=== PATIENT | female | born 1935 | race Caucasian/White ===

== ENCOUNTER 2016-11-10 10:49 | Inpatient (IN) | payer MEDICARE, OTHER ==
--- NOTE | 2016-11-10 12:20 | RAD ---
HISTORY: Pain, swelling, redness of left lower extremity COMPARISONS: None relevant TECHNIQUE: Multiple transverse and longitudinal ultrasound images were obtained of the left lower extremity from the level of the common femoral vein inferiorly through to the infrapopliteal veins using grayscale, color Doppler, and spectral Doppler imaging with and without compression and with augmentation. Comparison images were obtained of the contralateral common femoral vein. FINDINGS: VEINS: The venous system of the left lower extremity is compressible throughout its course, with normal flow on color Doppler imaging and normal response to augmentation on spectral Doppler imaging. SOFT TISSUES: There is subcutaneous edema along the calf. OTHER FINDINGS: There is a popliteal fossa cyst measuring 1.7 x 1.2 x 1.3 cm IMPRESSION: 1. NO LEFT LOWER EXTREMITY DEEP VEIN THROMBOSIS 2. BARBOSA'S CYST
--- NOTE | 2016-11-10 14:31 | RAD ---
Indication: Predominant posterior RIGHT knee pain. Swelling. Comparison: RIGHT lower extremity venous ultrasound of the same date markable for a 1.7 x 1.2 x 1.3 cm lateral cyst at the popliteal fossa. November 09, 2016 radiographs. Technique: Noncontrast CT RIGHT knee. Multiplanar reformation. Report: Normal articular alignment. Moderate lipohemarthrosis with air-fluid level reference axial image 28 of 80. Subtle impaction fracture with cortical disruption and trabecular impaction involving the distal metaphysis through medial femoral condyle. No appreciable articular surface extension of the fracture planes. Predisposing decreased bone density. Osteophytosis. Complete lateral joint space loss with associated reactive subchondral sclerosis. Subchondral cystic change at the undersurface of the patella. Subcutaneous edema. No loculated hematoma evident. Diffuse skeletal muscle atrophy. IMPRESSION: Intra-articular distal femur insufficiency fracture without significant displacement. Associated lipohemarthrosis. Osteoarthritis.
--- NOTE | 2016-11-10 14:49 | ED ---
Lower Extremity - HPI Summary HPI Summary: Patient presents with left knee pain. She suffered a fall two weeks ago onto both knees. She had mild discomfort but has been able to walk up until 2-3 days ago when weight bearing became impossible. She also began to notice swelling in the LLE with some increased redness. She has a history of blood clot so she came in for evaluation. She denies SOB, CP or lightheadedness. She does not have any pain when she is non-weight bearing but if she moves the knee certain ways it can be excruciating. No N/T. - History of Current Complaint Chief Complaint: EDExtremityLower Stated Complaint: LT KNEE PAIN Time Seen by Provider: 11/10/16 11:21 Hx Obtained From: Patient Mechanism Of Injury: Fall From A Standing Position Onset of Pain: Days Onset/Duration: Worse Since - two days ago Severity Initially: Mild Severity Currently: Severe Pain Intensity: 9 Timing: Constant Location: Is Discrete @ - left knee Character Of Pain: Sharp, Aching Associated Signs And Symptoms: Positive: Swelling, Redness, Knee Pain Aggravating Factor(s): Standing, Ambulation, Weight Bearing Alleviating Factor(s): Rest Able to Bear Weight: No - Allergies/Home Medications Allergies/Adverse Reactions: Allergies Allergy/AdvReac Type Severity Reaction Status Date / Time No Known Allergies Allergy Verified 09/05/12 09:46 Home Medications: Home Medications Metoprolol Succinate XL TAB* [Toprol XL TAB*] 50 mg PO DAILY 11/10/16 [History Confirmed 11/11/16] Rivaroxaban TAB(*) [Xarelto 10 mg (*)] 10 mg PO DAILY 11/10/16 [History Confirmed 11/10/16] Metoprolol Succinate XL TAB* [Toprol XL TAB*] 25 mg PO 1800 11/11/16 [History Confirmed 11/11/16] PMH/Surg Hx/FS Hx/Imm Hx Endocrine/Hematology History: Denies: Hx Anticoagulant Therapy Cardiovascular History: Reports: Other Cardiovascular Problems/Disorders - A FIB Respiratory History: Denies: Hx Asthma GI History: Reports: Hx Gastroesophageal Reflux Disease Infectious Disease History: No Infectious Disease History: Denies: Traveled Outside the [place] in Last 30 Days - Family History Known Family History: Positive: None - Social History Occupation: Retired Lives: Alone Alcohol Use: None Substance Use Type: Reports: None Smoking Status (MU): Never Smoked Tobacco Review of Systems Positive: Myalgia, Decreased ROM, Edema - left knee Negative: Weakness, Paresthesia, Numbness All Other Systems Reviewed And Are Negative: Yes Physical Exam Triage Information Reviewed: Yes Vital Signs On Initial Exam: Initial Vitals Temp Pulse Resp BP Pulse Ox 98.7 F 66 18 132/68 97 11/10/16 11:00 11/10/16 11:00 11/10/16 11:00 11/10/16 11:00 11/10/16 11:00 Vital Signs Reviewed: Yes Appearance: Positive: Well-Appearing, Well-Nourished, Pain Distress Skin: Positive: Warm, Skin Color Reflects Adequate Perfusion, Dry, Soft Head/Face: Positive: Normal Head/Face Inspection Eyes: Positive: EOMI, MAGGIE, Conjunctiva Clear ENT: Positive: Hearing grossly normal Respiratory/Lung Sounds: Positive: Clear to Auscultation, Breath Sounds Present Cardiovascular: Positive: RRR Musculoskeletal: Positive: Limited @, Pain @ - TTP lateral joint line; + patellar apprehension; non-tender popliteal kenny, Edema Left - moderate edema from the left knee distally through the foot - Janna Coma Scale Coma Scale Total: 15 Diagnostics - Vital Signs Vital Signs Temp Pulse Resp BP Pulse Ox 11/10/16 13:00 69 126/66 92 11/10/16 12:30 70 132/62 89 11/10/16 12:00 67 131/67 100 11/10/16 11:30 67 142/74 98 11/10/16 11:13 61 95 11/10/16 11:10 132/68 11/10/16 11:00 98.7 F 66 18 132/68 97 - Laboratory Lab Statement: Any lab studies that have been ordered have been reviewed, and results considered in the medical decision making process. - Radiology No standard instances Xray Interpretation: No Acute Changes Radiology Interpretation Completed By: Radiologist - CT No standard instances CT Interpretation: Positive (See Comments) - Left distal femur insufficiency fracture with minimal displacement CT Interpretation Completed By: Radiologist - Ultrasound No standard instances Ultrasound Interpretation: No Acute Changes Ultrasound Interpretation Completed By: Radiologist Lower Extremity Course/Dx - Diagnoses Differential Diagnosis/HQI/PQRI: Positive: Arthritis, Bursitis, Cellulitis, Compartment Syndrome, Contusion, Fracture (Closed), Osteomyelitis, Sprain, Strain Provider Diagnoses: Closed fracture of left distal femur - Physician Notifications Discussed Care of Patient With: Dr. Loja, orthopedic surgeon to consult; Dr. Bartholomew, hospitalist. Instructed by Provider To: Admit As Inpatient Discharge - Discharge Plan Condition: Stable Disposition: ADMITTED TO [facility]
[2016-11-10] MEDS: Acetaminophen TAB* 325 MG PO SCH ×3 (17:36→23:47)
[2016-11-10] MEDS ORDERED: Metoprolol Succinate XL TAB* 25 MG PO SCH (18:00)
[2016-11-10] MEDS: Rivaroxaban TAB(*) 10 MG PO SCH (18:13)
--- NOTE | 2016-11-10 21:40 | HP ---
HISTORY AND PHYSICAL: DATE OF ADMISSION: 11/10/16 PRIMARY CARE PROVIDER: Dr. Muñoz. CHIEF COMPLAINT: Left knee pain. HISTORY OF PRESENT ILLNESS: Ms. Burrell is an 81-year-old female who presented to the emergency room on 11/10/16 with complaints of left knee pain. The patient's story begins approximately 2-1/2 weeks ago when she was bending down to turn off a surge protector that her TV was plugged in to and fell forward landing on both of her knees. The patient states that initially she was able to ambulate with some difficulty and pain in her left knee, but was only requiring a cane to get around. The patient ambulated for approximately 10 days with increase in pain during that period of time. Additionally, she went from the point of needing just a cane to needing a walker to get around. At this point, the patient finds it would be extremely difficult to get around at all and therefore presented to the emergency room. The patient initially had x- rays on 11/09/16, which revealed no acute osseous injury, though the degree of osteopenia may make a nondisplaced fracture radiographically occult. If symptoms persist, it was recommended to repeat imaging. Because of persistent severe pain in the left knee, the patient presented to the emergency room today for evaluation. In the ER, the patient underwent a venous Doppler of the left lower extremity due to swelling, which revealed no evidence of DVT, though a Rosales cyst was present. Additionally, she underwent a CT scan of the left lower extremity, which revealed an intraarticular distal femur insufficiency fracture without significant displacement. There is an associated lipohemarthrosis and osteoarthritis noted. The patient is being admitted for pain control and likely placement for short-term rehab due to her inability to get around at home alone. PAST MEDICAL HISTORY: 1. Paroxysmal atrial fibrillation. 2. 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 3. Status post IVC filter. 4. Chronic balance issues. 5. GERD. MEDICATIONS: 1. Omeprazole 20 mg p.o. daily. 2. Metoprolol XL 75 mg p.o. daily. 3. Xarelto 10 mg p.o. daily. ALLERGIES: MULTAQ. FAMILY HISTORY: Mom had history of coronary disease in her 70s. Dad of leukemia in his 80s. SOCIAL HISTORY: The patient is a nonsmoker. She does not drink alcohol. 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 She lives alone. She has 3 children. Her son, Ezra Álvarez, phone number is [phone] and daughter, Sadaf Álvarez, phone number [phone] are her healthcare proxies. REVIEW OF SYSTEMS: The patient denies any fevers, chills, or anorexia. No chest pain, no cough, no shortness of breath. No abdominal pain. She moves her bowels routinely. No blood in the stool. No blood in her urine. She complains of severe pain in the left lower extremity, especially behind the left knee. She is having a hard time getting around. No rashes. PHYSICAL EXAMINATION GENERAL: The patient is a well-developed elderly female, sitting in the stretcher, in no acute distress. VITAL SIGNS: Blood pressure 126/66, pulse 69, respirations 18, temp 98.7, O2 sat 92% on room air. HEENT: Pupils are equal. They are round. They react to light. Extraocular muscles are intact. Oropharynx is clear. Oral mucosa is moist. There is no submandibular, cervical, or supraclavicular adenopathy. Thyroid is not enlarged. No thyroid nodules are noted. PULMONARY: Lungs are clear to auscultation bilaterally. CARDIAC: Normal S1, S2. Regular rate and rhythm. I do not appreciate any murmurs. There is 1+ left lower extremity edema. ABDOMEN: Bowel sounds are present. Abdomen is soft, nontender, nondistended. MUSCULOSKELETAL: There is no cyanosis or clubbing of the digits. There is full active range of motion of the bilateral upper extremities and right lower extremity. Left lower extremity range of motion is limited due to severe pain and in fact the patient screamed with minimal movement of her left lower extremity. SKIN: Warm and dry. There are no rashes. NEUROLOGIC: Cranial nerves II through XII are grossly intact. Sensation is intact to light touch throughout. Strength is 5/5 and symmetric in the upper extremities and right lower extremity. Left lower extremity strength is not tested due to severe pain. PSYCH: The patient is alert. She is oriented x3. The patient is an incredibly fast talker and leaves little time for questioning between her providing answers. DIAGNOSTIC STUDIES/LAB DATA: Left lower extremity CT, intraarticular distal femur fracture without significant displacement. ASSESSMENT AND PLAN: Ms. Burrell is an 81-year-old female who fell approximately 2-1/2 weeks ago due to a mechanical issue, presents to the emergency room with severe left knee pain with any movement and is found to have an intraarticular distal femur fracture that is nonsurgical in nature. 1. Left distal femur fracture. At this point, the management is conservative. The patient has been seen in consultation by Orthopedics. It has been recommended that the patient has Kerlix wrapped around her knees followed by an Nando wrap and a knee immobilizer. The patient is to be nonweightbearing on the left lower extremity. I suspect the patient is going to need short-term rehab as she lives alone and is unlikely to be able to manage on her own. A PT evaluation has been ordered. Pain control will be managed with Tylenol 975 mg p.o. q.6 hours as well as oxycodone 5 mg p.o. q.6 hours p.r.n. pain. 2. Paroxysmal atrial fibrillation. The patient is currently in sinus rhythm. She will be maintained on her usual dose of Xarelto and metoprolol. 3. Gastroesophageal reflux disease. The patient will be continued on her usual dose of omeprazole. 4. DVT prophylaxis. According to the Adult Thrombosis Prophylaxis Risk Factor Assessment Guide, the patient has a total risk factor score of 8 making her the highest risk. She is already on Xarelto and this will act as her DVT prophylaxis. 5. Code status is full and again the patient indicates that her children, Ezra Álvarez and Sadaf Álvarez, are her healthcare proxies. TIME SPENT: 65 minutes were spent admitting this patient. [id number]/[facility] #: [id number] [facility]
--- NOTE | 2016-11-10 21:40 | CONS ---
ORTHOPEDIC CONSULTATION NOTE: DATE OF CONSULT: 11/10/16 DATE OF DICTATION: 11/10/16 ATTENDING PHYSICIAN: Dr. Bartholomew. ATTENDING ORTHOPEDIC PHYSICIAN: Dr. Khalif Loja. (DICTATED BY TANI SORENSEN) CHIEF COMPLAINT: Left knee pain, inability to ambulate. HISTORY OF PRESENT ILLNESS: The patient is an 81-year-old female who states that she fell roughly [id number]-half weeks ago in her home landing on her knees. At that time, she did not have significant discomfort and was able to bear weight. Over the last 2 weeks, her left knee pain became increasingly more painful and she was having difficulty ambulating. She was evaluated with x- rays on the 09 of November, which failed to show any obvious acute fracture. Her bone quality is osteopenic. She presented to the emergency department this afternoon after being unable to ambulate with increased left knee pain. Venous Doppler was performed, which did not show evidence of a deep venous thrombosis. She underwent a CAT scan which did reveal a cortical defect/ nondisplaced fracture of the distal femoral metaphysis. Arthritic changes are also noted on both the plain films and the recent CAT scan. The patient denies other bodily injury upon her fall two-and-a- half weeks ago. PAST MEDICAL HISTORY: Significant for atrial fibrillation, history of uterine benign tumor, she had sutures on her upper lip several years ago. PAST SURGICAL HISTORY: Including removal of uterine tumor 20 plus years ago. She denies other surgical procedures. CURRENT MEDICATIONS: Include: 1. Xarelto 10 mg daily. 2. Metoprolol 75 mg p.o. daily. 3. Occasionally loratadine for seasonal allergies. ALLERGIES: The patient denies any known drug allergies. SOCIAL HISTORY: The patient denies use of tobacco or alcohol. She has two daughters, one lives on the [facility], one adopted and a son who is track repair worker , who I believe is local. PHYSICAL EXAM: The patient is alert and oriented x3. She is in no acute distress, sitting up in the emergency department with her knees most comfortably positioned in flexion. Orthopedic examination of the left knee failed to show any obvious ecchymosis, erythema, or significant edema. There is minimal tenderness to palpation over the distal femoral shaft anteriorly, medially, and laterally. She has discomfort to palpation in the popliteal fossa. Attempts at passive extension and flexion were extremely painful in the popliteal region of the knee. Her calf is soft and nontender. Homans' sign is negative. She has a 1+ pedal pulse. Her foot is pink and warm. DIAGNOSTIC STUDIES: Plain films of the left knee show arthritic changes especially in the lateral and anterior compartments without obvious fracture now that the CT has shown a cortical defect of the lateral metaphysis. It is noticeable her bone quality is osteopenic. The CT performed today does show the evidence of a cortical defect of a distal metaphyseal region. IMPRESSION: Nondisplaced fracture of the left distal femur. PLAN: The patient is admitted to the medical service. She lives alone and will be unable to care for herself with a nonweightbearing status on the left lower extremity. I recommend a well-padded knee immobilizer to be placed to the left lower extremity. Recommend nonweightbearing. At this time, no surgical intervention will be necessary. The patient is in understanding and knows that she will likely need to be placed in rehabilitation prior to being able to be independent at home alone. TANI SORENSEN [id number]/[facility] #: [id number] YVONNE
[2016-11-11] MEDS: Acetaminophen TAB* 325 MG PO SCH ×4 (05:39→23:38)
[2016-11-11] MEDS: Omeprazole CAP* 20 MG PO SCH (08:38)
[2016-11-11] MEDS: oxyCODONE TAB* 5 MG TAB PO PRN ×2 (08:38→15:53)
[2016-11-11] MEDS: Metoprolol Succinate XL TAB* 50 MG PO SCH (08:38)
--- NOTE | 2016-11-11 14:51 | PN ---
Subjective Date of Service: 11/11/16 Interval History: Patient seen and examined at bedside. Pt states that she is feeling well today and her pain is controlled. She has not been out of bed yet. Denies fever, chills, shortness of breath, chest discomfort, N/V/D. Family History: Unchanged from Admission Social History: Unchanged from Admission Past Medical History: Unchanged from Admission Objective Active Medications: Acetaminophen (Tylenol Tab*) 975 mg PO Q6H [facility] Metoprolol Succinate (Toprol Xl Tab*) 50 mg PO DAILY [facility] Metoprolol Succinate (Toprol Xl Tab*) 25 mg PO 1800 [facility] Omeprazole (Prilosec Cap*) 20 mg PO DAILY [facility] Oxycodone HCl (Roxycodone Tab*) 5 mg PO Q6H PRN Reason: PAIN Rivaroxaban (Xarelto(*)) 10 mg PO 1800 [facility] Vital Signs 11/10/16 11/10/16 11/10/16 17:02 17:12 17:37 Temperature 97.5 F 97.5 F Pulse Rate 72 72 Respiratory 18 18 18 Rate Blood Pressure 134/57 134/57 (mmHg) O2 Sat by Pulse 96 96 Oximetry 11/10/16 11/10/16 11/10/16 19:30 19:42 23:45 Temperature 97.8 F 97.5 F Pulse Rate 70 67 Respiratory 16 16 18 Rate Blood Pressure 107/58 109/52 (mmHg) O2 Sat by Pulse 98 97 Oximetry 11/11/16 11/11/16 11/11/16 03:27 07:22 08:00 Temperature 97.5 F 98.0 F Pulse Rate 76 71 Respiratory 18 18 16 Rate Blood Pressure 142/52 125/55 (mmHg) O2 Sat by Pulse 97 95 Oximetry 11/11/16 11/11/16 08:38 12:44 Temperature 97.5 F Pulse Rate 67 Respiratory 16 16 Rate Blood Pressure 105/60 (mmHg) O2 Sat by Pulse 96 Oximetry Oxygen Devices in Use Now: None Appearance: NAD, sitting up in bed Eyes: No Scleral Icterus, PERRLA Ears/Nose/Mouth/Throat: NL Teeth, Lips, Gums, Mucous Membranes Moist Neck: NL Appearance and Movements; NL JVP, Trachea Midline Respiratory: Symmetrical Chest Expansion and Respiratory Effort, Clear to Auscultation Cardiovascular: NL Sounds; No Murmurs; No JVD, RRR Abdominal: NL Sounds; No Tenderness; No Distention Extremities: - - Mild edema left LE Skin: - - Knee immobilizer inplace Neurological: Alert and Oriented x 3, NL Muscle Strength and Tone Lines/Tubes/Other Access: Clean, Dry and Intact Peripheral IV - site benign Nutrition: Taking PO's Assess/Plan/Problems-Billing Assessment: Ms. Burrell is an 81 yo female with PMH significant for paroxysmal afib, hx DVT who fell approximately 2 weeks ago and presented to the emergency room with severe left knee pain and was found to have an intraarticular distal femur fx that is nonsurgical in nature. - Patient Problems (1) Closed fracture of left distal femur Code(s): S72.402A - UNSP FRACTURE OF LOWER END OF LEFT FEMUR, INIT FOR CLOS FX SNOMED Code(s): 305626664 Comment: - Ortho consulted, nonsurgical fracture - PT eval and treat - Maintain left leg in a knee immobilizer and non-weight bearing for 4 weeks - Pain control and bowel regime (2) Paroxysmal atrial fibrillation Code(s): I48.0 - PAROXYSMAL ATRIAL FIBRILLATION SNOMED Code(s): 935029451 Comment: - Heart rate regular on exam - Continue Xarelto and Metoprolol (3) GERD (gastroesophageal reflux disease) Code(s): K21.9 - GASTRO-ESOPHAGEAL REFLUX DISEASE WITHOUT ESOPHAGITIS SNOMED Code(s): 602187294 Comment: - Continue omeprazole (4) DVT prophylaxis Code(s): BDS8811 - SNOMED Code(s): 186859784 Comment: - Continue Xarelto (5) Full code status Code(s): Z78.9 - OTHER SPECIFIED HEALTH STATUS SNOMED Code(s): 442986882 Status and Disposition: Inpatient. Plan for discharge to [facility] on Wednesday 11/15 for rehab.
[2016-11-11] MEDS: Metoprolol Succinate XL TAB* 25 MG PO SCH (17:44)
[2016-11-11] MEDS: Rivaroxaban TAB(*) 10 MG PO SCH (17:44)
[2016-11-11] MEDS ORDERED: Polyethylene Glycol 3350* 17 GM PACKET PO PRN (18:27)
[2016-11-11] MEDS ORDERED: Magnesium Hydroxide LIQ* 30 ML UDC PO PRN (18:27)
[2016-11-12] MEDS: Acetaminophen TAB* 325 MG PO SCH ×5 (04:42→23:22)
[2016-11-12] MEDS: Omeprazole CAP* 20 MG PO SCH (07:55)
[2016-11-12] MEDS: Metoprolol Succinate XL TAB* 50 MG PO SCH (07:55)
--- NOTE | 2016-11-12 11:09 | PN ---
Progress Note - Progress Note SOAP: Subjective: [Ms. Burrell is an 81 yo female who fell approximately 2 weeks ago and was found to have an intraarticular distal femur fx that is nonsurgical in nature. Patient working with PT well, no complaints, pain well controlled. ] Objective: [GEneral- Well appearing, NAD MSK- MIld LE edema L, immobilizer in place, PT pulse 2+ L ] Vital Signs Temp 97.7 F 11/12/16 07:21 Pulse 63 11/12/16 07:21 Resp 17 11/12/16 08:00 BP 113/53 11/12/16 07:21 Pulse Ox 97 11/12/16 07:21 Intake & Output 11/11/16 11/12/16 11/12/16 18:59 06:59 18:59 Intake Total 100 200 Output Total 1175 550 500 Balance -1075 -350 -500 Intake: Oral 100 200 Output: Urine 1175 550 500 Other: Date of Last Bowel 11/11/16 Movement Estimated Stool Amount Medium Assessment: [81 y/o female with intraarticular distal femur fx that is nonsurgical in nature ] Plan: [- DVT Prophylaxis- Xarelto - Continue PT/ OT - nonweight bearing - D/C to rehab/ SNF, follow up with DR Greco next week for repeat X-rays and new immobilizer. Active Medications Generic Name Dose Route Start Last Admin Trade Name Freq PRN Reason Stop Dose Admin Acetaminophen 975 mg 11/10/16 17:00 11/12/16 11:06 Tylenol Tab* PO 975 mg Q6H [facility] Administration Magnesium Hydroxide 30 ml 11/11/16 18:27 Milk Of Magnesia Liq* PO Q6H PRN CONSTIPATION Metoprolol Succinate 50 mg 11/11/16 09:00 11/12/16 07:55 Toprol Xl Tab* PO 50 mg DAILY [facility] Administration Metoprolol Succinate 25 mg 11/11/16 18:00 11/11/16 17:44 Toprol Xl Tab* PO 25 mg 1800 [facility] Administration Omeprazole 20 mg 11/11/16 09:00 11/12/16 07:55 Prilosec Cap* PO 20 mg DAILY [facility] Administration Oxycodone HCl 5 mg 11/10/16 16:23 11/11/16 15:53 Roxycodone Tab* PO 5 mg Q6H PRN Administration PAIN Polyethylene Glycol/Electrolytes 17 gm 11/11/16 18:27 Miralax* PO DAILY PRN CONSTIPATION Rivaroxaban 10 mg 11/10/16 18:00 11/11/16 17:44 Xarelto(*) PO 10 mg 1800 [facility] Administration ] <Sarah Ku - Last Filed: 11/12/16 11:10> - Progress Note SOAP: Subjective: I spoke with patient's daughter by telephone this weekend and clarified the plan for the patient's distal femur fracture. Objective: [] Assessment: [] Plan: - Toe touch or non-weight bearing LLE in a knee immobilizer, whichever she tolerates better - Physical therapy consult for mobility as well as for passive range of motion left knee, starting now - Patient is on track for Monday discharge to rehab per report - Patient can see me in the office 1 week after discharge from hospital for conversion to a brace, new x-ray, and ROM check <Khalif Loja - Last Filed: 11/13/16 15:56>
--- NOTE | 2016-11-12 13:28 | PN ---
Subjective Date of Service: 11/12/16 Interval History: . patient reports her pain is much better today and over very well controlled. Reports luis transfer to chair was much more comfortable. She denies fever, chills, SOB or CP. Reports loose stools starting yesterday and thinks she drank too much prune juice and vinegar. Last loose stool this morning. No N/V. Reports good appetite. Family History: Unchanged from Admission Social History: Unchanged from Admission Past Medical History: Unchanged from Admission Objective Active Medications: Acetaminophen (Tylenol Tab*) 975 mg PO Q6H [facility] Last Admin: 11/12/16 11:06 Dose: 975 mg Magnesium Hydroxide (Milk Of Magnconnie Liq*) 30 ml PO Q6H PRN PRN Reason: CONSTIPATION Metoprolol Succinate (Toprol Xl Tab*) 50 mg PO DAILY [facility] Last Admin: 11/12/16 07:55 Dose: 50 mg Metoprolol Succinate (Toprol Xl Tab*) 25 mg PO 1800 [facility] Last Admin: 11/11/16 17:44 Dose: 25 mg Omeprazole (Prilosec Cap*) 20 mg PO DAILY [facility] Last Admin: 11/12/16 07:55 Dose: 20 mg Oxycodone HCl (Roxycodone Tab*) 5 mg PO Q6H PRN PRN Reason: PAIN Last Admin: 11/11/16 15:53 Dose: 5 mg Polyethylene Glycol/Electrolytes (Miralax*) 17 gm PO DAILY PRN PRN Reason: CONSTIPATION Rivaroxaban (Xarelto(*)) 10 mg PO 1800 [facility] Last Admin: 11/11/16 17:44 Dose: 10 mg Vital Signs 11/11/16 11/11/16 11/11/16 14:59 15:53 16:00 Temperature 98.3 F 98.6 F Pulse Rate 74 102 Respiratory 16 16 16 Rate Blood Pressure 93/44 106/67 (mmHg) O2 Sat by Pulse 94 99 Oximetry 11/11/16 11/11/16 11/11/16 17:45 19:35 20:00 Temperature Pulse Rate Respiratory 16 20 18 Rate Blood Pressure (mmHg) O2 Sat by Pulse Oximetry 11/11/16 11/11/16 11/11/16 20:10 23:40 23:45 Temperature 98.4 F 98.1 F Pulse Rate 71 75 Respiratory 18 20 Rate Blood Pressure 102/58 128/74 (mmHg) O2 Sat by Pulse 97 97 Oximetry 11/12/16 11/12/16 11/12/16 03:58 04:05 07:21 Temperature 97.9 F 97.7 F Pulse Rate 67 63 Respiratory 16 17 Rate Blood Pressure 122/64 113/53 (mmHg) O2 Sat by Pulse 96 97 Oximetry 11/12/16 11/12/16 08:00 11:31 Temperature 97.8 F Pulse Rate 71 Respiratory 17 17 Rate Blood Pressure 107/52 (mmHg) O2 Sat by Pulse 96 Oximetry Oxygen Devices in Use Now: Nasal Cannula - 2L NC Appearance: 81 yo female sitting up in a chair in NAD. A+O x3 Eyes: No Scleral Icterus, PERRLA Ears/Nose/Mouth/Throat: NL Teeth, Lips, Gums, Mucous Membranes Moist Neck: NL Appearance and Movements; NL JVP Respiratory: Symmetrical Chest Expansion and Respiratory Effort, Clear to Auscultation Cardiovascular: NL Sounds; No Murmurs; No JVD, RRR, No Edema Abdominal: NL Sounds; No Tenderness; No Distention Lymphatic: No Cervical Adenopathy Extremities: No Edema, No Clubbing, Cyanosis, - - left leg in brace - extremity warm, pink, +pulses Skin: No Rash or Ulcers, No Nodules or Sclerosis Neurological: Alert and Oriented x 3, NL Sensation Lines/Tubes/Other Access: Clean, Dry and Intact Peripheral IV Nutrition: Taking PO's Assess/Plan/Problems-Billing Assessment: Ms. Burrell is an 81 yo female with PMH significant for paroxysmal afib, hx DVT who fell approximately 2 weeks ago and presented to the emergency room with severe left knee pain and was found to have an intraarticular distal femur fx that is nonsurgical in nature. - Patient Problems (1) Closed fracture of left distal femur Comment: - Ortho consulted, nonsurgical fracture - PT/OT - Maintain left leg in a knee immobilizer and non-weight bearing for 4 weeks - Pain control and bowel regimen (2) GERD (gastroesophageal reflux disease) Comment: - Continue omeprazole (3) Paroxysmal atrial fibrillation Comment: - Heart rate regular on exam - obtain EKG - Continue Xarelto and Metoprolol - pt only on 10 mg xarelto unclear why she is not on 20 mg, will check with cardiology. (4) DVT prophylaxis Comment: - Continue Xarelto (5) Full code status Status and Disposition: Inpatient. Plan for discharge to [facility] on Wednesday 11/15 for rehab.
[2016-11-12] MEDS: Rivaroxaban TAB(*) 10 MG PO SCH (17:15)
[2016-11-12] MEDS: Metoprolol Succinate XL TAB* 25 MG PO SCH (17:15)
[2016-11-12] MEDS: GLUCOSAMINE CHONDROITIN VIT C PO SCH (21:10)
[2016-11-13] MEDS: Acetaminophen TAB* 325 MG PO SCH ×4 (06:34→22:36)
[2016-11-13] MEDS: Omeprazole CAP* 20 MG PO SCH (06:35)
[2016-11-13 08:16] LABS: Hematocrit 36 % (35-47); Hemoglobin 12.2 g/dl (12.0-16.0); Mean Corpuscular HGB Conc 34 g/dl (31-36); Mean Corpuscular Hemoglobin 31 pg (27-31); Mean Corpuscular Volume 92 fL (80-97); Mean Platelet Volume 8 um3 (7.4-10.4); Red Blood Count 3.93 10^6/ul (4.0-5.4); Red Cell Distribution Width 14 % (10.5-15); White Blood Count 4.1 10^3/ul (3.5-10.8)
[2016-11-13 08:24] LABS: Calcium 9.1 mg/dL (8.6-10.3); EGFR Non-African American 124.4 (>60); Potassium 3.9 mmol/L (3.5-5.0)
[2016-11-13] MEDS: Metoprolol Succinate XL TAB* 50 MG PO SCH (08:33)
[2016-11-13] MEDS: GLUCOSAMINE CHONDROITIN VIT C PO SCH ×2 (09:09→21:12)
[2016-11-13] MEDS: oxyCODONE TAB* 5 MG TAB PO PRN (13:42)
--- NOTE | 2016-11-13 16:45 | PN ---
Subjective Date of Service: 11/13/16 Interval History: . Pt reports she "feels good today" some pain with Jackie lift today but over all her pain is well controlled. No N/V/D. Reports BM today. Good appetite. Denies numbness tingling in LLE Pt reports she would like to take 20 mg xarleto as recommended to protect for afib- she reports her PCP put her on 10mg and there wasnt a reason why. she denies kidney dysfunction. She does not follow with a table hand Family History: Unchanged from Admission Social History: Unchanged from Admission Past Medical History: Unchanged from Admission Objective Active Medications: Acetaminophen (Tylenol Tab*) 975 mg PO Q6H [facility] Last Admin: 11/13/16 12:03 Dose: 975 mg Magnesium Hydroxide (Milk Of Magnconnie Liq*) 30 ml PO Q6H PRN PRN Reason: CONSTIPATION Metoprolol Succinate (Toprol Xl Tab*) 50 mg PO DAILY [facility] Last Admin: 11/13/16 08:33 Dose: 50 mg Metoprolol Succinate (Toprol Xl Tab*) 25 mg PO 1800 [facility] Last Admin: 11/12/16 17:15 Dose: 25 mg Glucosamine- Chondroitin-Vit C- [ Glucosamine Chondroitin M] 1 cap PO BID [facility] Last Admin: 11/13/16 09:09 Dose: 1 cap Omeprazole (Prilosec Cap*) 20 mg PO DAILY@0730 [facility] Last Admin: 11/13/16 06:35 Dose: 20 mg Oxycodone HCl (Roxycodone Tab*) 5 mg PO Q6H PRN PRN Reason: PAIN Last Admin: 11/13/16 13:42 Dose: 5 mg Polyethylene Glycol/Electrolytes (Miralax*) 17 gm PO DAILY PRN PRN Reason: CONSTIPATION Rivaroxaban (Xarelto(*)) 10 mg PO 1800 [facility] Last Admin: 11/12/16 17:15 Dose: 10 mg Vital Signs 11/12/16 11/12/16 11/12/16 18:52 20:05 23:25 Temperature 98.2 F 98.0 F Pulse Rate 74 65 Respiratory 16 18 16 Rate Blood Pressure 103/52 126/58 (mmHg) O2 Sat by Pulse 95 96 Oximetry 11/13/16 11/13/16 11/13/16 04:43 07:49 08:00 Temperature 98.0 F 98.2 F Pulse Rate 65 60 Respiratory 16 16 18 Rate Blood Pressure 128/56 123/53 (mmHg) O2 Sat by Pulse 95 93 Oximetry 11/13/16 11/13/16 11/13/16 12:17 13:42 16:32 Temperature 97.9 F 98.0 F Pulse Rate 57 64 Respiratory 17 20 18 Rate Blood Pressure 100/41 100/49 (mmHg) O2 Sat by Pulse 97 97 Oximetry Oxygen Devices in Use Now: Nasal Cannula - 2L NC Appearance: 81 female sitting up in bed in NAD. A+O x3 Eyes: No Scleral Icterus, PERRLA Ears/Nose/Mouth/Throat: NL Teeth, Lips, Gums, Mucous Membranes Moist Neck: NL Appearance and Movements; NL JVP, Trachea Midline Respiratory: Symmetrical Chest Expansion and Respiratory Effort, Clear to Auscultation Cardiovascular: NL Sounds; No Murmurs; No JVD, RRR, No Edema Abdominal: NL Sounds; No Tenderness; No Distention Lymphatic: No Cervical Adenopathy Extremities: No Edema, No Clubbing, Cyanosis, - - left leg in brace - no noted edema noted. warm, pink, dry. + sensation to LEs Skin: No Rash or Ulcers, No Nodules or Sclerosis Neurological: Alert and Oriented x 3, NL Sensation, NL Muscle Strength and Tone Lines/Tubes/Other Access: Clean, Dry and Intact Peripheral IV Nutrition: Taking PO's Result Diagrams: 11/13/16 07:21 11/13/16 07:19 Assess/Plan/Problems-Billing Assessment: Ms. Burrell is an 81 yo female with PMH significant for paroxysmal afib, hx DVT who fell approximately 2 weeks ago and presented to the emergency room with severe left knee pain and was found to have an intraarticular distal femur fx that is nonsurgical in nature. - Patient Problems (1) Closed fracture of left distal femur Comment: - Ortho consulted, nonsurgical fracture - PT/OT - Maintain left leg in a knee immobilizer and non-weight bearing for 4 weeks - Pain control and bowel regimen (2) GERD (gastroesophageal reflux disease) Comment: - Continue omeprazole (3) Paroxysmal atrial fibrillation Comment: - Heart rate regular on exam - EKG showing NSR - Continue Xarelto 20 mg daily (increased from 10 mg prescribed by pcp), Metoprolol - side consulted Dr. Hart who recommended Eliquis 5 mg PO BID but pt refused and wanted once a day dosing. (4) DVT prophylaxis Comment: - Continue Xarelto (5) Full code status Status and Disposition: Inpatient. Plan for discharge to [facility] on Wednesday 11/15 for rehab.
[2016-11-13] MEDS ORDERED: NS 0.9% 1000 ML* 1,000 ML IV SCH (17:30)
[2016-11-13] MEDS: Metoprolol Succinate XL TAB* 25 MG PO SCH (17:46)
[2016-11-13] MEDS: Rivaroxaban TAB(*) 20 MG TAB PO SCH (18:18)
[2016-11-14] MEDS: Acetaminophen TAB* 325 MG PO SCH ×4 (04:55→23:15)
[2016-11-14 07:37] LABS: Hematocrit 36 % (35-47); Hemoglobin 12.2 g/dl (12.0-16.0); Mean Corpuscular HGB Conc 34 g/dl (31-36); Mean Corpuscular Hemoglobin 31 pg (27-31); Mean Corpuscular Volume 92 fL (80-97); Mean Platelet Volume 7 um3 (7.4-10.4); Red Cell Distribution Width 13 % (10.5-15); White Blood Count 4.2 10^3/ul (3.5-10.8)
[2016-11-14 07:50] LABS: BUN/Creatinine Ratio 30.2 (8-20); Calcium 8.7 mg/dL (8.6-10.3); EGFR African American 142.7 (>60); Potassium 3.9 mmol/L (3.5-5.0)
[2016-11-14] MEDS: Omeprazole CAP* 20 MG PO SCH (07:55)
[2016-11-14] MEDS: GLUCOSAMINE CHONDROITIN VIT C PO SCH ×2 (07:55→20:33)
[2016-11-14] MEDS: Metoprolol Succinate XL TAB* 50 MG PO SCH (07:55)
--- NOTE | 2016-11-14 08:08 | PN ---
Progress Note - Progress Note SOAP: Subjective: []Patient seen at bedside. Alert and oriented. Leg pain well managed in knee immobilizer. Looking forward to discharge to rehab tomorrow. Objective: [] Vital Signs Temp 97.6 F 11/14/16 04:54 Pulse 62 11/14/16 04:54 Resp 18 11/14/16 04:54 BP 137/62 11/14/16 04:54 Pulse Ox 97 11/14/16 04:54 Intake & Output 11/13/16 11/14/16 11/14/16 18:59 06:59 18:59 Intake Total 360 200 Output Total 600 1800 Balance -240 -1600 Intake: Oral 360 200 Output: Urine 600 1800 Other: Date of Last Bowel 11/13/16 Movement # Bowel Movements 1 Estimated Stool Amount Small Laboratory Results - last 24 hr 11/13/16 11/13/16 11/14/16 07:19 07:21 07:17 WBC 4.1 4.2 RBC 3.93 L 3.90 L Hgb 12.2 12.2 Hct 36 36 MCV 92 92 MCH 31 31 MCHC 34 34 RDW 14 13 Plt Count 255 254 MPV 8 7 L Neut % (Auto) 60.6 61.4 Lymph % (Auto) 18.4 L 19.0 L [place] % (Auto) 20.7 H 19.4 H Eos % (Auto) 0.1 0.1 Baso % (Auto) 0.2 0.1 Absolute Neuts (auto) 2.5 2.6 Absolute Lymphs (auto) 0.7 L 0.8 L Absolute Monos (auto) 0.8 0.8 Absolute Eos (auto) 0 0 Absolute Basos (auto) 0 0 Absolute Nucleated RBC 0 0 Nucleated RBC % 0 0 Sodium 130 L Potassium 3.9 Chloride 98 L Carbon Dioxide 27 Anion Gap 5 BUN 12 Creatinine 0.48 L Est GFR ( Amer) 160.0 Est GFR (Non-Af Amer) 124.4 BUN/Creatinine Ratio 25.0 H Glucose 89 Calcium 9.1 11/14/16 07:17 WBC RBC Hgb Hct MCV MCH MCHC RDW Plt Count MPV Neut % (Auto) Lymph % (Auto) [place] % (Auto) Eos % (Auto) Baso % (Auto) Absolute Neuts (auto) Absolute Lymphs (auto) Absolute Monos (auto) Absolute Eos (auto) Absolute Basos (auto) Absolute Nucleated RBC Nucleated RBC % Sodium 131 L Potassium 3.9 Chloride 100 L Carbon Dioxide 26 Anion Gap 5 BUN 16 Creatinine 0.53 Est GFR ( Amer) 142.7 Est GFR (Non-Af Amer) 111.0 BUN/Creatinine Ratio 30.2 H Glucose 89 Calcium 8.7 Left knee padding /Nando intact knee immobilizer donned calf non tender and soft neuro intact distally Assessment: []Intra articular left distal femur fracture Plan: []Non operative management non weightbearing to [facility] Left [facility] rehab discharge tomorrow Follow up in office with Dr. Loja next week [place]
--- NOTE | 2016-11-14 14:44 | PN ---
Subjective Date of Service: 11/14/16 Interval History: Patient seen and examined at bedside. Pt state that she is feeling well and her pain is controlled. Denies fever, chills, shortness of breath, chest discomfort , N/V/D. Pt continues to get up with the luis lift. Family History: Unchanged from Admission Social History: Unchanged from Admission Past Medical History: Unchanged from Admission Objective Active Medications: Acetaminophen (Tylenol Tab*) 975 mg PO Q6H [facility] Magnesium Hydroxide (Milk Of Magnesia Liq*) 30 ml PO Q6H PRN Reason: CONSTIPATION Metoprolol Succinate (Toprol Xl Tab*) 50 mg PO DAILY [facility] Metoprolol Succinate (Toprol Xl Tab*) 25 mg PO 1800 [facility] Glucosamine- Chondroitin-Vit C- [ Glucosamine Chondroitin M] 1 cap PO BID [facility] Omeprazole (Prilosec Cap*) 20 mg PO DAILY@0730 [facility] Oxycodone HCl (Roxycodone Tab*) 5 mg PO Q6H PRN Reason: PAIN Polyethylene Glycol/Electrolytes (Miralax*) 17 gm PO DAILY PRN Reason: CONSTIPATION Rivaroxaban (Xarelto (*)) 20 mg PO 1800 [facility] Vital Signs 11/13/16 11/13/16 11/13/16 15:42 16:32 19:32 Temperature 98.0 F 98.3 F Pulse Rate 64 65 Respiratory 18 18 16 Rate Blood Pressure 100/49 110/45 (mmHg) O2 Sat by Pulse 97 98 Oximetry 11/13/16 11/13/16 11/14/16 21:18 23:15 04:54 Temperature 97.9 F 97.6 F Pulse Rate 70 62 Respiratory 16 20 18 Rate Blood Pressure 126/50 137/62 (mmHg) O2 Sat by Pulse 97 97 Oximetry 11/14/16 11/14/16 11/14/16 07:35 08:00 11:35 Temperature 98.0 F Pulse Rate 58 62 Respiratory 18 18 18 Rate Blood Pressure 114/58 114/43 (mmHg) O2 Sat by Pulse 98 97 Oximetry Oxygen Devices in Use Now: None Appearance: NAD, sitting up in a chair Eyes: No Scleral Icterus, PERRLA Ears/Nose/Mouth/Throat: NL Teeth, Lips, Gums, Mucous Membranes Moist Neck: NL Appearance and Movements; NL JVP, Trachea Midline Respiratory: Symmetrical Chest Expansion and Respiratory Effort, Clear to Auscultation Cardiovascular: NL Sounds; No Murmurs; No JVD, RRR Abdominal: NL Sounds; No Tenderness; No Distention Extremities: No Edema, - - Knee immobilizer in place to left LE Skin: No Rash or Ulcers Neurological: Alert and Oriented x 3, NL Muscle Strength and Tone Lines/Tubes/Other Access: Clean, Dry and Intact Peripheral IV - site benign Nutrition: Taking PO's Result Diagrams: 11/14/16 07:17 11/14/16 07:17 Assess/Plan/Problems-Billing Assessment: Ms. Burrell is an 81 yo female with PMH significant for paroxysmal afib, hx DVT who fell approximately 2 weeks ago and presented to the emergency room with severe left knee pain and was found to have an intraarticular distal femur fx that is nonsurgical in nature. - Patient Problems (1) Closed fracture of left distal femur Code(s): S72.402A - UNSP FRACTURE OF LOWER END OF LEFT FEMUR, INIT FOR CLOS FX SNOMED Code(s): 500141900 Comment: - Ortho consulted, nonsurgical fracture - PT/OT - Maintain left leg in a knee immobilizer and non-weight bearing for 4 weeks - Pain control and bowel regimen (2) Paroxysmal atrial fibrillation Code(s): I48.0 - PAROXYSMAL ATRIAL FIBRILLATION SNOMED Code(s): 486468181 Comment: - Heart rate regular on exam - EKG showing NSR - Continue Xarelto 20 mg daily (increased from 10 mg prescribed by pcp), Metoprolol - Side consulted Dr. Hart who recommended Eliquis 5 mg PO BID but pt refused and wanted once a day dosing. (3) GERD (gastroesophageal reflux disease) Code(s): K21.9 - GASTRO-ESOPHAGEAL REFLUX DISEASE WITHOUT ESOPHAGITIS SNOMED Code(s): 334394044 Comment: - Continue omeprazole (4) DVT prophylaxis Code(s): ANQ7093 - SNOMED Code(s): 189832176 Comment: - Continue Xarelto (5) Full code status Code(s): Z78.9 - OTHER SPECIFIED HEALTH STATUS SNOMED Code(s): 071386592 Status and Disposition: Inpatient. Plan for discharge to [facility] on Wednesday 11/15 for rehab.
[2016-11-14] MEDS: Rivaroxaban TAB(*) 20 MG TAB PO SCH (17:24)
[2016-11-14] MEDS: Metoprolol Succinate XL TAB* 25 MG PO SCH (17:24)
[2016-11-15] MEDS: Acetaminophen TAB* 325 MG PO SCH ×2 (04:44→11:17)
[2016-11-15 07:47] VITALS: BP 107/68
[2016-11-15] MEDS: Omeprazole CAP* 20 MG PO SCH (09:02)
[2016-11-15] MEDS: Metoprolol Succinate XL TAB* 50 MG PO SCH (09:02)
[2016-11-15] MEDS: GLUCOSAMINE CHONDROITIN VIT C PO SCH (09:02)
--- NOTE | 2016-11-15 09:21 | DS ---
DISCHARGE SUMMARY: DATE OF ADMISSION: 11/10/16 DATE OF DISCHARGE: 11/15/16 PRIMARY CARE PROVIDER: Dr. Muñoz. ATTENDING PHYSICIAN: Dr. Rodrick Valdes *(dictated by Huong Bobo NP). PRIMARY DIAGNOSIS: A closed left distal femur fracture. SECONDARY DIAGNOSES: 1. Paroxysmal atrial fibrillation. 2. Gastroesophageal reflux disease. 3. History of pulmonary embolism. CONSULTATIONS WHILE IN THE HOSPITAL: Dr. Khalif Loja with Orthopedic Surgery. STUDIES WHILE IN THE HOSPITAL: 1. Venous Doppler study on 11/10/16. Radiologist impression: No left lower extremity deep vein thrombosis. Rosales's cyst. 2. Left lower extremity CT on 11/10/16. Radiologist impression: Intraarticular distal femur insufficiency fracture without significant displacement. Associated lipohemarthrosis, osteoarthritis. DISCHARGE MEDICATIONS: New home medications: 1. Acetaminophen 975 mg oral every 6 hours. Continued home medications: 1. Omeprazole 20 mg oral daily. 2. Metoprolol succinate 50 mg oral daily. 3. Metoprolol succinate 25 mg oral every evening. 4. Glucosamine chondroitin one capsule oral twice daily. 5. Calcium 500 plus D 500/200 mg one tablet oral twice twice daily. 6. Vitamin E 400 units oral daily. 7. Cod liver oil two tablets oral daily. 8. Vitamin D 1000 units oral daily. 9. Luetin one tablet oral daily. 10. Vitamin B12 one tablet oral daily. 11. Multivitamin with iron one tablet oral daily. 12. Loratadine one tablet oral daily. Changed home medications: 1. Xarelto 20 mg oral daily (changed from 10mg). HISTORY OF PRESENT ILLNESS/HOSPITAL COURSE: Ms. Burrell is an 81-year-old female with past medical history significant for paroxysmal atrial fibrillation , history of DVT with IVC filter and on Xarelto, GERD, and chronic balance issues who presented to the emergency room on 11/10/16 with complaints of left knee pain. The patient reports left knee pain starting approximately two and half weeks ago when she fell forward landing on both of her knees. The patient initially was able to ambulate with some difficulty and pain in her left knee, but was only requiring a cane. As she continued to ambulate for approximately the next 10 days, the patient's pain increased and she was needing a walker to ambulate. Based off of this, the patient decided to present to the emergency room for further evaluation. While in the emergency room, the patient had x-rays on 11/09/16 that revealed no acute osseous injury, though the degree of osteopenia may make a nondisplaced fracture radiographically acute. If the symptoms persist, it was recommended to get repeat imaging. The patient was discharged and re-presented to the emergency room the following day due to her persistent pain. During that time in the emergency room, the patient underwent a venous Doppler due to left lower extremity swelling; it showed no evidence of a DVTs, but a Rosales's cyst was present. Additionally, she had a CT of her left lower extremity which revealed an intraarticular distal femur insufficiency fracture without significant displacement. Hospitalists were asked to evaluate the patient for admission for possible short-term rehab due to her inability to ambulate and the fact that she lived alone. While in the hospital, the patient was seen in consultation by Dr. Loja with Orthopedic Surgery who felt that this was a nonoperative fracture and the patient should be maintained in an Nando wrap, a knee immobilizer, and be nonweightbearing for 4 weeks. The patient was seen in evaluation by physical therapy. The patient was unable to get up nonweightbearing and was requiring a Jackie lift then. It's to note also during the patient's time as far as her paroxysmal atrial fibrillation, she has been in a sinus rhythm. The patient's pain was controlled with standing Tylenol. The patient was felt to have rehab needs and was offered a bed at [facility] for MondayNovember 15. Ms. Burrell is stable for discharge to [facility] on November 15. PHYSICAL EXAMINATION: Vital signs are as follows: Temperature 98.0, heart rate 62, respiratory rate 18, O2 sat 97% on room air, blood pressure 114/43. DISCHARGE PLAN: Ms. Burrell will be discharged to [facility]. She should be nonweightbearing to toe-touch weightbearing on her left lower extremity. She should be maintained in a knee immobilizer on the left lower extremity. She will be on a regular diet. As far as the patient's history of paroxysmal atrial fibrillation, she had her Xarelto increased from 10 mg to 20 mg and maintained on her metoprolol. The patient has been continued on her usual omeprazole for her gastroesophageal reflux disease. The patient should be seen in followup by her primary care provider, Dr. Muñoz, or a provider at [facility] per their protocol. The patient should return to the emergency room for chest discomfort, shortness of breath. The patient should be seen also in followup with Dr. Loja in one week. This is a summarized report of a complex medical history and hospital stay. For further details, please see the entire medical record. TIME SPENT: Time for this discharge was 50 minutes, and 25 minutes were spent face- to-face with the patient discussing discharge plans and instructions. CONDITION ON DISCHARGE: Stable. Reviewed by GELY LÓPEZ 11/15/16 1033 CC: Dr. Muñoz; [facility]. * [id number]/[facility] #: [id number] YVONNE
--- NOTE | 2016-11-15 10:37 | PN ---
Subjective Date of Service: 11/15/16 Interval History: Patient seen and examined at bedside. Pt states that she is feeling well and anxious to get to rehab. Denies fever, chills, shortness of breath, chest discomfort, N/V/D. Pt's pain is well controlled with standing Tylenol. Family History: Unchanged from Admission Social History: Unchanged from Admission Past Medical History: Unchanged from Admission Objective Active Medications: Acetaminophen (Tylenol Tab*) 975 mg PO Q6H [facility] Magnesium Hydroxide (Milk Of Magnesia Liq*) 30 ml PO Q6H PRN Reason: CONSTIPATION Metoprolol Succinate (Toprol Xl Tab*) 50 mg PO DAILY [facility] Metoprolol Succinate (Toprol Xl Tab*) 25 mg PO 1800 [facility] Glucosamine- Chondroitin-Vit C- [ Glucosamine Chondroitin M] 1 cap PO BID [facility] Omeprazole (Prilosec Cap*) 20 mg PO DAILY@0730 [facility] Oxycodone HCl (Roxycodone Tab*) 5 mg PO Q6H PRN Reason: PAIN Polyethylene Glycol/Electrolytes (Miralax*) 17 gm PO DAILY PRN Reason: CONSTIPATION Rivaroxaban (Xarelto (*)) 20 mg PO 1800 [facility] Vital Signs 11/14/16 11/14/16 11/14/16 11:35 15:50 19:24 Temperature 98.0 F 97.9 F 98.1 F Pulse Rate 62 61 62 Respiratory 18 20 16 Rate Blood Pressure 114/43 107/52 101/52 (mmHg) O2 Sat by Pulse 97 99 98 Oximetry 11/14/16 11/14/16 11/15/16 20:00 23:09 03:06 Temperature 97.8 F 97.7 F Pulse Rate 61 63 Respiratory 17 18 18 Rate Blood Pressure 121/54 127/60 (mmHg) O2 Sat by Pulse 96 98 Oximetry 11/15/16 11/15/16 07:24 08:00 Temperature 97.9 F Pulse Rate 58 Respiratory 16 15 Rate Blood Pressure 107/68 (mmHg) O2 Sat by Pulse 96 Oximetry Oxygen Devices in Use Now: None Appearance: NAD, sitting up in bed Eyes: No Scleral Icterus, PERRLA Ears/Nose/Mouth/Throat: NL Teeth, Lips, Gums, Mucous Membranes Moist Neck: NL Appearance and Movements; NL JVP, Trachea Midline Respiratory: Symmetrical Chest Expansion and Respiratory Effort, Clear to Auscultation Cardiovascular: NL Sounds; No Murmurs; No JVD, RRR Abdominal: NL Sounds; No Tenderness; No Distention Extremities: - - Trace to 1+ edema to left LE. Knee immobilizer in place to left LE Neurological: Alert and Oriented x 3, NL Muscle Strength and Tone Lines/Tubes/Other Access: Clean, Dry and Intact Peripheral IV - site benign Nutrition: Taking PO's Result Diagrams: 11/14/16 07:17 11/14/16 07:17 Assess/Plan/Problems-Billing Assessment: Ms. Burrell is an 81 yo female with PMH significant for paroxysmal afib, hx DVT who fell approximately 2 weeks ago and presented to the emergency room with severe left knee pain and was found to have an intraarticular distal femur fx that is nonsurgical in nature. - Patient Problems (1) Closed fracture of left distal femur Code(s): S72.402A - UNSP FRACTURE OF LOWER END OF LEFT FEMUR, INIT FOR CLOS FX SNOMED Code(s): 167736292 Comment: - Ortho consulted, nonsurgical fracture - PT/OT - Maintain left leg in a knee immobilizer and non-weight bearing for 4 weeks - Pain control and bowel regimen (2) Paroxysmal atrial fibrillation Code(s): I48.0 - PAROXYSMAL ATRIAL FIBRILLATION SNOMED Code(s): 063807719 Comment: - Heart rate regular on exam - EKG showing NSR - Continue Xarelto 20 mg daily (increased from 10 mg prescribed by pcp), Metoprolol - Side consulted Dr. Hart who recommended Eliquis 5 mg PO BID but pt refused and wanted once a day dosing. (3) GERD (gastroesophageal reflux disease) Code(s): K21.9 - GASTRO-ESOPHAGEAL REFLUX DISEASE WITHOUT ESOPHAGITIS SNOMED Code(s): 766993176 Comment: - Continue omeprazole (4) DVT prophylaxis Code(s): JIC1103 - SNOMED Code(s): 564222843 Comment: - Continue Xarelto (5) Full code status Code(s): Z78.9 - OTHER SPECIFIED HEALTH STATUS SNOMED Code(s): 409179402 Status and Disposition: Inpatient. Stable for discharge to [facility] today.
== END 2016-11-15 12:00 | DRG 534 ==
LOC: ED 10:49 → SSU 14:36
PROVIDERS: ADMIT Hospitalist; ATTEND Hospitalist
PROC: 2W3MX3Z Immobilization of Left Lower Extremity using Brace (ICD-10-PCS; principal; 2016-11-10)
DX: S72.492A Other fracture of lower end of left femur, initial encounter for closed fracture (principal); I48.0 Paroxysmal atrial fibrillation; M71.22 Synovial cyst of popliteal space [Baker], left knee; K21.9 Gastro-esophageal reflux disease without esophagitis; W18.39XA Other fall on same level, initial encounter; Y92.009 Unspecified place in unspecified non-institutional (private) residence as the place of occurrence of the external cause; Z79.01 Long term (current) use of anticoagulants; Z86.711 Personal history of pulmonary embolism; M17.12 Unilateral primary osteoarthritis, left knee; Z79.899 Other long term (current) drug therapy; Z86.718 Personal history of other venous thrombosis and embolism; Z88.8 Allergy status to other drugs, medicaments and biological substances; Z82.49 Family history of ischemic heart disease and other diseases of the circulatory system; Z80.6 Family history of leukemia
CPT/HCPCS: 36415; 80048; 85025; 93005; A9270-GY

== ENCOUNTER 2017-04-08 23:28 | Inpatient (IN) | payer MEDICARE, OTHER ==
--- NOTE | 2017-04-09 02:23 | ED ---
Timothy Owen Rebecca, scribed for Lincoln Horn MD on 04/09/17 at 0218 . Upper Extremity Pain - HPI Summary HPI Summary: Pt is an 82 y/o F BIBA who presents to ED c/o LUE pain s/p mechanical fall. Pt reports that at 2130 she was bending over, without using her cane, when she fell and hit her LUE on the wall. Reports that she could not get up off the floor and when she tried, she pushed all of her weight on the LUE. Pain began immediately upon trying to stand up and has been constant since onset. Pain is currently moderate, ranked 5/10. Sx aggravated by nothing, alleviated by rest. - History of Current Complaint Chief Complaint: EDExtremityUpper Stated Complaint: LT ARM WEAKNESS Time Seen by Provider: 04/09/17 02:12 Hx Obtained From: Patient Mechanism Of Injury: Fall From A Standing Position Onset/Duration: Started Hours Ago, Still Present Timing: Constant Severity Currently: Moderate Aggravating Factor(s): Nothing Alleviating Factor(s): Rest Associated Signs & Symptoms: Positive: Negative - Allergies/Home Medications Allergies/Adverse Reactions: Allergies Allergy/AdvReac Type Severity Reaction Status Date / Time No Known Allergies Allergy Verified 09/05/12 09:46 PMH/Surg Hx/FS Hx/Imm Hx Endocrine/Hematology History: Reports: Hx Anemia Denies: Hx Anticoagulant Therapy, Hx Diabetes, Hx Thyroid Disease Cardiovascular History: Reports: Hx Hypertension, Other Cardiovascular Problems/ Disorders - A FIB Respiratory History: Denies: Hx Asthma GI History: Reports: Hx Gastroesophageal Reflux Disease Musculoskeletal History: Reports: Hx Arthritis, Hx Osteoporosis Sensory History: Reports: Hx Contacts or Glasses Opthamlomology History: Reports: Hx Contacts or Glasses Infectious Disease History: No Infectious Disease History: Denies: Traveled Outside the [place] in Last 30 Days - Family History Known Family History: Positive: Cardiac Disease - mother, Other - Leukemia ( father) - Social History Alcohol Use: None Substance Use Type: Reports: None Smoking Status (MU): Never Smoked Tobacco Review of Systems Negative: Fever Positive: Arthralgia - LUE pain s/p mechanical fall All Other Systems Reviewed And Are Negative: Yes Physical Exam Triage Information Reviewed: Yes Vital Signs On Initial Exam: Initial Vitals Temp Pulse Resp BP Pulse Ox 98.9 F 72 16 127/67 98 04/09/17 00:03 04/09/17 00:03 04/09/17 00:03 04/09/17 00:03 04/09/17 00:03 Vital Signs Reviewed: Yes Appearance: Positive: Pain Distress - mild discomfort, Thin Skin: Positive: Warm Head/Face: Positive: Normal Head/Face Inspection Eyes: Positive: MAGGIE ENT: Positive: Hearing grossly normal Neck: Positive: Supple Respiratory/Lung Sounds: Positive: Breath Sounds Present Cardiovascular: Positive: RRR Abdomen Description: Positive: Nontender, Soft Bowel Sounds: Positive: Present Musculoskeletal: Positive: Other - lt shoulder, no deformity, pain with movement Neurological: Positive: Alert, Oriented to Person Place, Time Psychiatric: Positive: Affect/Mood Appropriate - Janna Coma Scale Coma Scale Total: 15 Diagnostics - Vital Signs Vital Signs Temp Pulse Resp BP Pulse Ox 04/09/17 01:30 122 116/80 97 04/09/17 01:00 72 124/58 99 04/09/17 00:30 72 128/64 99 04/09/17 00:13 73 97 04/09/17 00:12 127/67 04/09/17 00:03 98.9 F 72 16 127/67 98 - Laboratory Lab Statement: Any lab studies that have been ordered have been reviewed, and results considered in the medical decision making process. - Radiology Humerus XR Xray Interpretation: No Acute Changes - No fracture Radiology Interpretation Completed By: ED Physician Re-Evaluation - Re-Evaluation First Eval Comment: results d/w pt, unable to manage, lived alone will have social service evaluate Course/Dx - Course Assessment/Plan: Pt is an 82 y/o F BIBA who presents to ED c/o moderate LUE pain s/p mechanical fall. Pt reports that at 2130 she was bending over, without using her cane, when she fell. Reports that she could not get up off the floor and when she tried, she pushed all of her weight on the LUE, which is how she believes she caused injury. Pain began immediately upon trying to stand up and has been constant since onset. Sx aggravated by nothing, alleviated by rest. Humerus XR reveals no fractute. Plan was to D/C pt but she is unable to independently ambulate or sit on the toilet safely and cannot be D/C, per charge nurse. She will be signed out, pending dispo, awaiting social work consult. - Diagnoses Provider Diagnoses: Shoulder contusion Discharge - Discharge Plan Condition: Fair Disposition: ADMITTED TO [facility] Discharge Disposition Comment: Pt will be signed out, pending dispo, awaiting social work consult Patient Education Materials: Contusion in Adults (ED) Referrals: Flash Mckeon MD [Primary Care Provider] - 3 Days The documentation as recorded by the Timothy gonsalez Rebecca accurately reflects the service I personally performed and the decisions made by Kory simms David, MD.
[2017-04-09] MEDS ORDERED: Ketorolac INJ* 30 MG/ML 1 ML VIAL IM ONE (02:28)
[2017-04-09] MEDS ORDERED: Acetaminophen TAB* 325 MG PO PRN ×2 (08:55→09:04)
[2017-04-09] MEDS ORDERED: Metoprolol Succinate XL TAB* 25 MG PO SCH ×2 (09:00→18:00)
--- NOTE | 2017-04-09 10:17 | RAD ---
Indication: Left humerus pain. 2 views of the left humerus demonstrates likely impacted fracture neck of the left humerus. Clinical correlation is suggested. The remainder of the humerus is otherwise unremarkable. IMPRESSION: There is suggestion of an impacted fracture of the left humeral neck.
[2017-04-09] MEDS: Multivitamins/Minerals TAB PO SCH (13:10)
[2017-04-09] MEDS: Omeprazole CAP* 20 MG PO SCH (13:11)
[2017-04-09] MEDS: Calcium/Vitamin D TAB 250/125* TAB PO SCH ×2 (14:21→21:28)
[2017-04-09] MEDS: Cetirizine* 10 MG TAB PO SCH (14:21)
[2017-04-09] MEDS: Cholecalciferol TAB* 1000 UNITS PO SCH (14:21)
[2017-04-09] MEDS: GLUCOSAMINE CHONDROITIN VIT C PO SCH ×2 (14:22→19:59)
[2017-04-09] MEDS: Vitamin E CAP* 400 UNIT PO SCH (14:22)
[2017-04-09] MEDS: Metoprolol Succinate XL TAB* 25 MG PO SCH (17:37)
[2017-04-09] MEDS: Rivaroxaban TAB(*) 20 MG TAB PO SCH (17:37)
--- NOTE | 2017-04-09 18:40 | RAD ---
Indication: Abnormal humerus x-ray CT of the left shoulder was obtained in the axial plane. Sagittal and coronal reconstructed images were obtained. There is an impacted fracture of the anatomic neck of the humerus. This is mildly impacted. There is a joint effusion noted. The scapula is intact. AC joint is unremarkable. The lung panchal appear clear. IMPRESSION: There is an impacted fracture of the neck of the left humerus with minimal overriding of the fracture fragments. Joint effusion is noted.
--- NOTE | 2017-04-10 00:29 | HP ---
CC: Dr. Muñoz Valentine * HISTORY AND PHYSICAL: DATE OF ADMISSION: 04/09/17 CHIEF COMPLAINT: Left shoulder pain. HISTORY OF PRESENT ILLNESS: The patient is an 82-year-old woman who presented to [facility] after saying she was bending down in the dark earlier in the day and then she fell, hit her head against the wall and then hit her shoulder. She had trouble getting off the floor and finally was able to. Because her shoulder hurt and she knew she had trouble getting up, she called her Life Alert bracelet. She never lost consciousness. She was not nauseous. She was not dizzy. She had no chest pain or shortness of breath. Her left arm hurt enough that she went to the ER. In the ER, she had an x-ray which showed no evidence of a fracture bruise. Unfortunately, because the patient walks with a walker, she cannot use it with her arm this way. She is being admitted under observation until she gets stronger or needs short-term rehab. 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 MEDICATIONS: 1. Kelp 1 tablet daily. 2. Hydrochlorothiazide 12.5 mg daily. 3. Calcium carbonate with cholecalciferol 1 tablet twice daily. 4. Vitamin D 1 capsule daily. 5. Xarelto 20 mg every day. 6. Omeprazole 20 mg daily. 7. Multivitamin with iron 1 tablet daily. 8. Metoprolol succinate 75 mg daily. 9. Lutein 1 tablet daily. 10. Loratadine 1 tablet daily. 11. Glucosamine/chondroitin 1 capsule twice daily. 12. Vitamin B12 1 capsule daily. 13. Cod liver oil 2 tablets daily. 14. Cholecalciferol 1000 units daily. 15. Tylenol 650 mg every 6 hours as needed. ALLERGIES: She has an allergy to MULTAQ. FAMILY HISTORY: Mother had history of coronary artery disease. Father of leukemia in his 80s. SOCIAL HISTORY: Nonsmoker. No alcohol. 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 She lives alone. She has 3 children. Her son, Ezra Álvaerz, is her healthcare proxy, phone number, and daughter, Sadaf Álvarez is also, [phone]. REVIEW OF SYSTEMS: A 14-point review of systems was completed with the patient. All pertinent positives and negatives are in the history of present illness, otherwise is negative. PHYSICAL EXAMINATION GENERAL: Pleasant woman, lying in bed, in no acute distress. VITAL SIGNS: Temperature 97.8 degrees, heart rate 55 beats per minute, respiratory rate 16 breaths per minute, pulse ox 94%, blood pressure 117/45. HEENT: Normocephalic, atraumatic. Pupils equal, round, reactive to light. Moist mucous membranes. NECK: Supple. No JVD, bruits, palpable thyroid, or lymphadenopathy. CHEST: Clear to auscultation and percussion bilaterally. CARDIOVASCULAR: S1, S2 appreciated. No murmurs, gallops, or rubs. ABDOMEN: Positive bowel sounds in all 4 quadrants. Soft, nontender, nondistended. EXTREMITIES: No cyanosis, clubbing, or edema. +2 peripheral pulses bilaterally. Left arm is in a sling. NEUROLOGIC: Alert and oriented x3. Moves all extremities. SKIN: No rashes or abnormalities. DIAGNOSTIC STUDIES/LAB DATA: Radiology reports and lab data is pending. Radiology report shows a humerus x-ray, there is suggestion of an impacted fracture of the left humeral neck. ASSESSMENT AND PLAN: 1. Left shoulder pain. We will get a CT scan of the left shoulder to confirm whether or not there is a fracture. PT consult, maybe Ortho if shoulder fracture is there. 2. Atrial fibrillation, continue Xarelto for now. We will hold obviously if going for surgery. 3. Gastroesophageal reflux disease, stable. Continue PPI. 4. FEN. Regular diet. 5. DVT prophylaxis. She is on Xarelto. 6. The patient is a do not resuscitate. TIME SPENT: Over 75 minutes was spent on the H and P, more than 40 minutes of which was spent on direct [id number] contact with the patient in evaluation, physical exam, counseling, and coordination of care. [id number]/[facility]PS #: [id number] MTDD
[2017-04-10] MEDS: Cholecalciferol TAB* 1000 UNITS PO SCH (08:25)
[2017-04-10] MEDS: Calcium/Vitamin D TAB 250/125* TAB PO SCH ×2 (08:25→21:04)
[2017-04-10] MEDS: Cetirizine* 10 MG TAB PO SCH (08:25)
[2017-04-10] MEDS: Omeprazole CAP* 20 MG PO SCH (08:25)
[2017-04-10] MEDS: Vitamin E CAP* 400 UNIT PO SCH (08:25)
[2017-04-10] MEDS: Multivitamins/Minerals TAB PO SCH (08:25)
[2017-04-10] MEDS: GLUCOSAMINE CHONDROITIN VIT C PO SCH ×2 (08:26→21:52)
[2017-04-10] MEDS: Metoprolol Succinate XL TAB* 25 MG PO SCH ×2 (08:26→18:09)
--- NOTE | 2017-04-10 15:27 | CONS ---
CC: Dr. Zamora. CONSULTATION REPORT: DATE OF CONSULT: 04/10/17 CHIEF COMPLAINT: Left shoulder pain. HISTORY OF PRESENT ILLNESS: Vilma is an 82-year-old woman who injured her left shoulder when she fel l at home. She was admitted to the hospital because she could not take care of herself. She lives alone. X-ray and CT scan show an impacted fracture of the left proximal humerus. She is in a sling . She is comfortable in the sling. Her pain is well controlled. She denies any numbness or tingli ng and she denies other injury, though she did hit her head. She had a CT scan of her left upper ex tremity which showed again the nondisplaced impacted fracture of left humeral neck. PHYSICAL EXAM: She is a healthy-appearing, very talkative woman in minimal distress at rest. She i s not ambulating today because she cannot use her walker with her arm as it is. She is alert and o riented. She has no focal deficits. She has no obvious neurologic deficits. Left upper extremity e xam shows good range of motion of her elbow, wrist and fingers. Her skin is intact. Her neurovascu lar function is intact. IMPRESSION: Impacted facture of the left proximal humerus. PLAN: Plan is for continued use of the sling. I will see her in followup in my office in [facility] tel 2 weeks' time. [id number]/[facility] #: [id number]
--- NOTE | 2017-04-10 17:15 | PN ---
Subjective Date of Service: 04/10/17 Interval History: HOSPITALIST PROGRESS NOTE Patient seen and examined at bedside. She denies any pain on her arm, no other physical complaints, but concerned with her capacity to manage alone at her home. Family History: Unchanged from Admission Social History: Unchanged from Admission Past Medical History: Unchanged from Admission Objective Active Medications: Acetaminophen (Tylenol Tab*) 650 mg PO Q6H PRN PRN Reason: PAIN Acetaminophen (Tylenol Tab*) 650 mg PO Q4H PRN PRN Reason: FEVER/PAIN Calcium/Vitamin D (Oscal D Tab 250/125*) 1 tab PO BID [facility] Last Admin: 04/10/17 08:25 Dose: 1 tab Cetirizine HCl (Zyrtec*) 10 mg PO DAILY [facility] Last Admin: 04/10/17 08:25 Dose: 10 mg Cholecalciferol (Vitamin D Tab*) 1,000 units PO DAILY [facility] Last Admin: 04/10/17 08:25 Dose: 1,000 units Metoprolol Succinate (Toprol Xl Tab*) 25 mg PO 1800 [facility] Last Admin: 04/09/17 17:37 Dose: 25 mg Metoprolol Succinate (Toprol Xl Tab*) 50 mg PO DAILY [facility] Last Admin: 04/10/17 08:26 Dose: 50 mg Multivitamins/Minerals (Theragran/Minerals Tab*) 1 tab PO DAILY [facility] Last Admin: 04/10/17 08:25 Dose: 1 tab Non-Formulary Medication (Cyanocobalamin [Vitamin B-12]) 1 tab PO DAILY [facility] Last Admin: 04/10/17 08:26 Dose: Not Given Non-Formulary Medication (Fadhvfwumip-Rsjfhfnzawc-Lma C- [Glucosamine Chondroitin M]) 1 cap PO BID [facility] Last Admin: 04/10/17 08:26 Dose: Not Given Non-Formulary Medication (Lutein [Eql Lutein]) 1 tab PO DAILY [facility] Last Admin: 04/10/17 09:23 Dose: Not Given Omeprazole (Prilosec Cap*) 20 mg PO 0730 [facility] Last Admin: 04/10/17 08:25 Dose: 20 mg Rivaroxaban (Xarelto (*)) 20 mg PO 1800 [facility] Last Admin: 04/09/17 17:37 Dose: 20 mg Vitamin E (Vitamin E Cap*) 400 unit PO DAILY [facility] Last Admin: 04/10/17 08:25 Dose: 400 unit Vital Signs 04/10/17 04/10/17 11:19 15:47 Temperature 97.7 F 97.4 F Pulse Rate 63 61 Respiratory 17 18 Rate Blood Pressure 102/53 104/53 (mmHg) O2 Sat by Pulse 99 100 Oximetry Oxygen Devices in Use Now: None Appearance: Pleasant elderly lady sitting up in bed in NAD. Eyes: No Scleral Icterus Ears/Nose/Mouth/Throat: Mucous Membranes Moist Neck: Trachea Midline Respiratory: Symmetrical Chest Expansion and Respiratory Effort, Clear to Auscultation Cardiovascular: RRR - Normal S1 and S2 Extremities: - - LUE in a sling, good pulses, good capilary refill, good ROM on hand, wrist, and elbow. Neurological: Alert and Oriented x 3 Lines/Tubes/Other Access: Clean, Dry and Intact Peripheral IV Nutrition: Taking PO's Assess/Plan/Problems-Billing Assessment: Mrs. Burrell is an 82yo F with PMH of paroxysmal Afib, DVT, uterine tumor, s/p IVC filter, GERD, left distal femur fracture 11/11, who sustained a fall at home and presented with LUE pain, found to have a left proximal humerus fracture. - Patient Problems (1) Left humeral fracture Comment: - Ortho input appreciated - plan for conservative management and follow up in 2 weeks as outpatient. - PT input appreciated - patient progressing well with amb, but main concerns are high level balance deficits and quad weakenss (difficulty sit-stand and unable to ascend one step); may benefit from rehab prior to discharge home. (2) Paroxysmal atrial fibrillation Comment: - Heart rate regular on exam. - Continue Xarelto and Metoprolol. (3) GERD (gastroesophageal reflux disease) Comment: - Continue omeprazole. (4) DVT prophylaxis Code(s): RNT0408 - SNOMED Code(s): 313014733 Comment: - Xarelto. (5) DNR (do not resuscitate) Status and Disposition: Change to inpatient.
[2017-04-10] MEDS: Rivaroxaban TAB(*) 20 MG TAB PO SCH (18:09)
[2017-04-11 06:05] LABS: Hematocrit 34 % (35-47); Hemoglobin 11.5 g/dl (12.0-16.0); Mean Corpuscular HGB Conc 34 g/dl (31-36); Mean Corpuscular Hemoglobin 32 pg (27-31); Mean Corpuscular Volume 95 fL (80-97); Mean Platelet Volume 7 um3 (7.4-10.4); Red Blood Count 3.56 10^6/ul (4.0-5.4); Red Cell Distribution Width 14 % (10.5-15); White Blood Count 3.8 10^3/ul (3.5-10.8)
[2017-04-11 06:24] LABS: EGFR African American 145.6 (>60); EGFR Non-African American 113.2 (>60); Potassium 4.1 mmol/L (3.5-5.0)
[2017-04-11] MEDS: Cholecalciferol TAB* 1000 UNITS PO SCH (09:08)
[2017-04-11] MEDS: Multivitamins/Minerals TAB PO SCH (09:08)
[2017-04-11] MEDS: Metoprolol Succinate XL TAB* 25 MG PO SCH (09:09)
[2017-04-11] MEDS: Cetirizine* 10 MG TAB PO SCH (09:09)
[2017-04-11] MEDS: Calcium/Vitamin D TAB 250/125* TAB PO SCH (09:09)
[2017-04-11] MEDS: Omeprazole CAP* 20 MG PO SCH (09:09)
[2017-04-11] MEDS: GLUCOSAMINE CHONDROITIN VIT C PO SCH (09:11)
[2017-04-11] MEDS: Vitamin E CAP* 400 UNIT PO SCH (10:18)
[2017-04-11 12:42] VITALS: BP 102/70
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
== END 2017-04-11 15:05 | DRG 563 ==
LOC: ED 23:28 → SSU 04-09 09:04 → OBSVTOIN 04-10 17:19
PROVIDERS: ADMIT Internal Medicine; ATTEND Internal Medicine
DX: S42.295A Other nondisplaced fracture of upper end of left humerus, initial encounter for closed fracture (principal); E87.1 Hypo-osmolality and hyponatremia; I48.0 Paroxysmal atrial fibrillation; I10 Essential (primary) hypertension; K21.9 Gastro-esophageal reflux disease without esophagitis; M19.90 Unspecified osteoarthritis, unspecified site; M81.0 Age-related osteoporosis without current pathological fracture; R40.2412 Glasgow coma scale score 13-15, at arrival to emergency department; T50.2X5A Adverse effect of carbonic-anhydrase inhibitors, benzothiadiazides and other diuretics, initial encounter; W18.39XA Other fall on same level, initial encounter; Z86.718 Personal history of other venous thrombosis and embolism; Z88.8 Allergy status to other drugs, medicaments and biological substances; Z80.6 Family history of leukemia; Z82.49 Family history of ischemic heart disease and other diseases of the circulatory system; Y92.098 Other place in other non-institutional residence as the place of occurrence of the external cause; Z79.01 Long term (current) use of anticoagulants
CPT/HCPCS: 36415; 80048; 85025; 93005; A9270-GY; G0378; G8978-GP-CJ; G8978-GP-CM; G8979-GP-CI; G8979-GP-CJ; G8980-GP-CI; G8987-GO-CM; G8988-GO-CI; J1885

== ENCOUNTER 2018-02-21 17:11 | Inpatient (IN) | payer MEDICARE, OTHER ==
--- OUTSIDE RECORDS SUMMARY | 2018-02-21 18:39 | XMS REPORT ---
:1935 External Reference #:[id number] Author Organization Formerly [facility] Address [address] [place] [address] Phone [phone] Care Team Providers Name Role Phone Oumar Muñoz MD Care Team Information Carrier Driver Unavailable Payers Type Date Identification Numbers Payment Provider Subscriber Health Maintenance Effective: Policy Number: [facility] Vilma Burrell [facility] [place] [place] 09[birth year]1999 [id number] Expires: 09/24/2010 Group Number: [id number] [address] PayID: [id number] [place] [address] Medicare Primary Effective: Policy Number: Medicare - Bswny Vilma Burrell 10/26/2005 [id number] [facility] PayID: [id number] [address] [place] [address] Medigap Part B Policy Number: [id number] [place] Burrell Group Number: [id number] [address] Group Name: [place] [address] PayID: [id number] Problems Description No Information Family History Date Family Member(s) Problem(s) Comments General Osteoarthritis Father Osteoarthritis Father due to Alcoholism () Father Leukemia Father due to In His 80S () : (age 84 Mother due to [place] Years) Mother Polymyalgia Rheumatica Mother Hypothyroid Mother Cancer, Breast First Daughter Bipolar Disorder First Daughter Adopted, had TB when she got to [place] Social History Type Date Description Comments Marital Status Lives With Alone Cigarette Use Never Smoked Cigarettes ETOH Use Denies alcohol use Exercise Type/Frequency Exercises regularly 20 min/day 7d/wk Allergies, Adverse Reactions, Alerts Date Description Reaction Status Severity Comments 05/12/2016 NKDA active Medications Medication Date Status Form Strength Qnty SIG Indications Ordering Provider Diltiazem HCL 02/21 Active Tablets 30mg 60tab 1 tab by I10 Oumar s mouth twice Heet[place] a day MD Metoprolol 02/15 Active Tablets 100mg 30tab 1 by mouth Oumar Succinate ER 24HR s every day MD Toni Buspirone HCL 01/31 Active Tablets 5mg 60tab 1 tab by F41.9 Oumar s mouth four [place] times a day MD as needed Walk-In Shower 06/22 Active 1unit with Oumar s handrails - Toni to assist MD with safety due to osteoarthri tis and unsteady gait Xarelto 01/27 Active Tablets 20mg 30tab Take One Oumar s Tablet By Heetdernaveen Mouth Every , Day Hydrochlorothiazid 01/27 Active Capsules 12.5mg 30cap Take One I10 Oumar s Capsule By Diegoetthalia Mouth Every MD Morning Physical Therapy 01/23 Active Recovering from femur Heetderks fracture, , please continue physical therapy. Omeprazole 01/09 Active Capsules 20mg 30cap Take One K21.[address] s Capsule By Toni Mouth Every , Day Loratadine 10/07 Active Tablets 10mg 90tab 1 tab by Oumar s mouth daily MD Toni Metoprolol 08/13 Hx Tablets 25mg 90tab 3 by mouth Oumar Succinate ER 24HR s every day Toni Blankenship MD 02/15 Metoprolol 07/24 Hx Tablets 50mg 90tab 1 1/2 by Oumar Succinate ER 24HR s mouth every Toni - MD yelitza 08/13 Cyclobenzaprine 07/06 Hx Tablets 5mg 45tab Take One Oumar s Tablet By Toni - Jaswinder DAVID MD 01/31 Bedtime Needed Skelaxin 06/22 Hx Tablets 800mg 20tab take 1 M54.5 Oumar s tablet by Heetderks - mouth at , 06/22 bedtime for muscle spasm Hydrocodone-Acetam 11/09 Hx Tablets 5-325mg 10tab 1/2-1 M25.569 Oumar inophen s tablet bid Toni Blankenship for severe , 01/31 pain Metoprolol 03/24 Hx Tablets 25mg 90tab take two Oumar Succinate ER ER 24HR s tablets by Diegoetderks - mouth every , 07/24 day Metoprolol 10/07 Hx Tablets 50mg 45tab 1 2 by Oumar Succinate ER ER 24HR s mouth daily Toni Blankenship MD 03/24 Xarelto 10/07 Hx Tablets 10mg 30tab take one Oumar s tablet by Diegoetwilbertks - mouth MD shahana 01/27 Excuse From Work 10/29 Hx Vilma sanju Moreno return to [facility], - work as of M.DMitzi 11/0711/01/04. /2005 Immunizations CPT Code Status Date Vaccine Lot # [id number] Refused 07/13/2017 Influenza Virus Vaccine, Quadrivalent, 3 Yr > Quad, Preserv Free [id number] Refused 03/21/2016 Zoster Vaccine Vital Signs Date Vital Result Comment 02/21/2018 Weight 189.00 lb Weight in kg's 85.730 BP Systolic 110 mmHg BP Diastolic 80 mmHg Heart Rate 104 /min Body Temperature 97.9 F Respiratory Rate 18 /min 01/31/2018 Weight 182.00 lb Weight in kg's 82.555 BP Systolic 112 mmHg BP Diastolic 66 mmHg Heart Rate 116 /min Body Temperature 97.5 F Respiratory Rate 16 /min Height 65 inches 5'5" BMI (Body Mass Index) 30.3 kg/m2 O2 % BldC Oximetry 98 % 08/21/2017 Weight 173.00 lb Weight in kg's 78.473 BP Systolic 100 mmHg BP Diastolic 58 mmHg Heart Rate 56 /min Body Temperature 97.1 F Respiratory Rate 14 /min 07/29/2017 Weight 162.00 lb Weight in kg's 73.483 BP Systolic 112 mmHg BP Diastolic 64 mmHg Heart Rate 72 /min Body Temperature 97.2 F 07/13/2017 Weight 163.00 lb Weight in kg's 73.937 BP Systolic 105 mmHg BP Diastolic 55 mmHg Heart Rate 68 /min Body Temperature 97.9 F O2 % BldC Oximetry 97 % 06/22/2017 Weight 170.00 lb Weight in kg's 77.112 BP Systolic 120 mmHg BP Diastolic 60 mmHg Heart Rate 76 /min Body Temperature 96.9 F Respiratory Rate 16 /min 01/27/2017 Weight 180.00 lb Weight in kg's 81.648 BP Systolic 128 mmHg BP Diastolic 70 mmHg Heart Rate 72 /min Body Temperature 97.0 F Respiratory Rate 24 /min 01/09/2017 Weight 180.00 lb Weight in kg's 81.648 BP Systolic 120 mmHg BP Diastolic 70 mmHg Heart Rate 69 /min Body Temperature 97.9 F Respiratory Rate 12 /min 11/09/2016 BP Systolic 100 mmHg BP Diastolic 60 mmHg Heart Rate 76 /min Body Temperature 96.7 F Respiratory Rate 14 /min 05/12/2016 Weight 183.00 lb Weight in kg's 83.009 BP Systolic 120 mmHg BP Diastolic 70 mmHg Heart Rate 60 /min Body Temperature 97.6 F Respiratory Rate 16 /min 03/21/2016 Weight 196.00 lb Weight in kg's 88.906 BP Systolic 102 mmHg BP Diastolic 72 mmHg Heart Rate 68 /min Height 65 inches 5'5" BMI (Body Mass Index) 32.6 kg/m2 10/07/2015 Weight 174.00 lb Weight in kg's 78.926 BP Systolic 120 mmHg BP Diastolic 60 mmHg Heart Rate 62 /min 11/07/2005 Weight 172.00 lb Weight in kg's 78.019 BP Systolic 124 mmHg BP Diastolic 68 mmHg Height 67.5 inches 5'7.50" BMI (Body Mass Index) 26.5 kg/m2 10/22/2005 Weight 173.00 lb Weight in kg's 78.473 BP Systolic 130 mmHg BP Diastolic 80 mmHg Body Temperature 97.0 F Height 67 inches 5'7" BMI (Body Mass Index) 27.1 kg/m2 10/29/2004 Weight 172.00 lb Weight in kg's 78.019 BP Systolic 130 mmHg BP Diastolic 84 mmHg Body Temperature 98.3 F Height 67 inches 5'7" BMI (Body Mass Index) 26.9 kg/m2 10/23/2004 Weight 173.00 lb Weight in kg's 78.473 BP Systolic 140 mmHg BP Diastolic 66 mmHg Body Temperature 98.3 F Height 67 inches 5'7" BMI (Body Mass Index) 27.1 kg/m2 08/03/2004 Weight 176.00 lb Weight in kg's 79.834 BP Systolic 130 mmHg BP Diastolic 60 mmHg Heart Rate 80 /min Respiratory Rate 18 /min Height 67 inches 5'7" BMI (Body Mass Index) 27.6 kg/m2 07/30/2003 Weight 191.00 lb Weight in kg's 86.638 BP Systolic 150 mmHg BP Diastolic 68 mmHg Heart Rate 80 /min Respiratory Rate 18 /min Height 68 inches BMI (Body Mass Index) 29.0 kg/m2 11/27/2002 Weight 190.00 lb Weight in kg's 86.2 BP Systolic 128 mmHg BP Diastolic 80 mmHg Heart Rate 80 /min Respiratory Rate 18 /min 02/11/2002 Weight 193.00 lb BP Systolic 140 mmHg BP Diastolic 70 mmHg Heart Rate 76 /min Respiratory Rate 18 /min Height 68 inches BMI (Body Mass Index) 29.3 kg/m2 Results Test Date Test Result H/L Range Note Laboratory test 02/21/2018 B-Type Natriuretic <pending> finding Peptide BNP CBC Auto Diff 08/21/2017 White Blood Count 4.0 10^3/uL 3.5-10.8 Red Blood Count 3.70 10^6/uL Low 4.0-5.4 Hemoglobin 11.7 g/dL Low 12.0-16.0 Hematocrit 35 % 35-47 Mean Corpuscular Volume 94 fL 80-97 Mean Corpuscular Hemoglobin 32 pg High 27-31 Mean Corpuscular HGB Conc 34 g/dL 31-36 Red Cell Distribution Width 15 % 10.5-15 Platelet Count 236 10^3/uL 150-450 Mean Platelet Volume 10 um3 7.4-10.4 Abs Neutrophils 2.5 10^3/uL 1.5-7.7 Abs Lymphocytes 0.6 10^3/uL Low 1.0-4.8 Abs Monocytes 0.8 10^3/uL 0-0.8 Abs Eosinophils 0 10^3/uL 0-0.6 Abs Basophils 0 10^3/uL 0-0.2 Abs Nucleated RBC 0 10^3/uL Granulocyte % 64.3 % 38-83 Lymphocyte % 15.4 % Low 25-47 Monocyte % 20.1 % High 1-9 Eosinophil % 0 % 0-6 Basophil % 0.2 % 0-2 Nucleated Red Blood Cells % 0 Comp Metabolic Panel 08/21/2017 Sodium 127 mmol/L Low 133-145 Potassium 4.3 mmol/L 3.5-5.0 Chloride 91 mmol/L Low 101-111 Co2 Carbon Dioxide 31 mmol/L 22-32 Anion Gap 5 mmol/L 2-11 Glucose 83 mg/dL 70-100 Blood Urea Nitrogen 15 mg/dL 6-24 Creatinine 0.51 mg/dL 0.51-0.95 BUN/Creatinine Ratio 29.4 High 8-20 Calcium 9.2 mg/dL 8.6-10.3 Total Protein 6.7 g/dL 6.4-8.9 Albumin 4.0 g/dL 3.2-5.2 Globulin 2.7 g/dL 2-4 Albumin/Globulin Ratio 1.5 1-3 Total Bilirubin 0.80 mg/dL 0.2-1.0 Alkaline Phosphatase 71 U/L 34-104 Alt 17 U/L 7-52 Ast 25 U/L 13-39 Egfr Non- 115.7 >60 Egfr 148.8 >60 1 Laboratory test finding 08/21/2017 TSH (Thyroid Stim Horm) 1.63 mcIU/mL 0.34-5.60 2 CBC Auto Diff 10/07/2015 White Blood Count 4.4 10^3/uL 3.5-10.8 Red Blood Count 4.30 10^6/uL 4.0-5.4 Hemoglobin 13.5 g/dL 12.0-16.0 Hematocrit 41 % 35-47 Mean Corpuscular Volume 96 fL 80-97 Mean Corpuscular Hemoglobin 32 pg High 27-31 Mean Corpuscular HGB Conc 33 g/dL 31-36 Red Cell Distribution Width 14 % 10.5-15 Platelet Count 245 10^3/uL 150-450 Mean Platelet Volume 11 um3 High 7.4-10.4 Abs Neutrophils 2.9 10^3/uL 1.5-7.7 Abs Lymphocytes 0.7 10^3/uL Low 1.0-4.8 Abs Monocytes 0.7 10^3/uL 0-0.8 Abs Eosinophils 0 10^3/uL 0-0.6 Abs Basophils 0 10^3/uL 0-0.2 Abs Nucleated RBC 0 10^3/uL Granulocyte % 65.9 % 38-83 Lymphocyte % 16.4 % Low 25-47 Monocyte % 16.9 % High 1-9 Eosinophil % 0.6 % 0-6 Basophil % 0.2 % 0-2 Nucleated Red Blood Cells % 0.1 Comp Metabolic Panel 10/07/2015 Sodium 130 mmol/L Low 133-145 Potassium 4.6 mmol/L 3.5-5.0 Chloride 93 mmol/L Low 101-111 Co2 Carbon Dioxide 30 mmol/L 22-32 Anion Gap 7 mmol/L 2-11 Glucose 77 mg/dL 70-100 Blood Urea Nitrogen 14 mg/dL 6-24 Creatinine 0.52 mg/dL 0.51-0.95 BUN/Creatinine Ratio 26.9 High 8-20 Calcium 9.9 mg/dL 8.6-10.3 Total Protein 7.4 g/dL 6.4-8.9 Albumin 4.5 g/dL 3.2-5.2 Globulin 2.9 g/dL 2-4 Albumin/Globulin Ratio 1.6 1-3 Total Bilirubin 0.80 mg/dL 0.2-1.0 Alkaline Phosphatase 63 U/L 34-104 Alt 18 U/L 7-52 Ast 27 U/L 13-39 Egfr Non- 113.8 >60 Egfr 146.3 >60 3 Laboratory test finding 10/07/2015 Vitamin D Total 25(Oh) 40.3 ng/mL 30- 50 CBC With Manual Diff 11/11/2005 RBC Morphology NORMAL White Blood Count 4.2 CUMM Low 4.8-10.8 Hematocrit 39 % 35-47 Hemoglobin 13.3 g/dL 12.0-16.0 Mean Corpuscular HGB Cone 34 g/dL 32-36 Mean Corpuscular Hemoglob 32 pg High 27-31 Mean Corpuscular Volume 93 um3 79-97 Mean Platelet Volume 9.8 um3 7.4-10.4 Platelet Count 265 CUMM 150-450 Polysegmented Neutrophil 62 % 38-83 Red Cell Count 4.22 CUMM 4.2-5.4 Redcell Distribution WDTH 13 % 10.5-15 Absolute Neutrophil Count 2.6 Lymphocyte 28 % 5-47 Monocyte 10 % 0-13 Laboratory test 11/11/2005 C Reactive Protein < 0.5 mg/dL Less Than 0.5 finding Lipid Profile 11/11/2005 Cholesterol/HDL 3.12 AVERAGE 1-4.44 (Trig/Chol/HDL) Ratio Cholesterol 240 mg/dL High Less Than 200 4 Triglyceride 51 mg/dL 40-200 High Density Lipoprotein 77 mg/dL High 40-60 5 Low Density Lipoprotein 153 mg/dL High Less Than 100 6 Laboratory test finding 11/11/2005 TSH 2.15 MIU/ML 0.34-5.60 Homocysteine 11.6 UMOL/L High 3.3-10.4 7 Mercury,Whole Blood < 2.0 UG/L <5.0 8 Urine DIP 10/29/2005 Leukocytes NEG Neg Urine Nitrites NEG Neg Urine pH 7 High 5-6 Total Protein, Urine TRACE Neg Urine Glucose NEG Norm Urine Ketones NEG Neg Urobilinogen NORM Norm Urine Bilirubin NEG Neg Urine Blood NEG Neg Specific Cum[place] N/A Low 1.01-1.02 Urine DIP 10/24/2005 Leukocytes 2+ High Neg Urine Nitrites NEG Neg Urine pH 5 5-6 Total Protein, Urine TRACE Neg Urine Glucose NL Norm Urine Ketones NL Neg Urobilinogen NL Norm Urine Bilirubin NL Neg Urine Blood 50 High Neg Specific Cum[place] N/A Low 1.01-1.02 Urine Culture And 10/22/2005 Urine Culture SCANT NORMAL URE 9 Sensitivites Sensitivi <SEE NOTE> Urine DIP 10/22/2005 Leukocytes NEG Neg Urine Nitrites NEG Neg Urine pH 5 5-6 Total Protein, Urine TRACE Neg Urine Glucose NL Norm Urine Ketones NL Neg Urobilinogen NL Norm Urine Bilirubin NL Neg Urine Blood 50 High Neg Specific [place] N/A Low 1.01-1.02 Laboratory test finding 10/29/2004 Oximetry - Single Study 97% Urine DIP 08/06/2004 Leukocytes 2+ High Neg Urine Nitrites NEG Neg Urine pH 5 5-6 Total Protein, Urine NEG Neg Urine Glucose NORM Norm Urine Ketones NEG Neg Urobolinogen NORM Norm Urine Bilirubin NEG Neg Urine Blood 100 High Neg Specific [place] NA Low 1.01-1.02 Laboratory test finding 08/03/2004 Thyrotropin (TSH) 1.860 uIU/ml 0.35 - 5.5 GFR (Calculated) 59 10 Comprehensive Metabolic 08/03/2004 Glucose 108 mg/dL 61.0 - 110.0 BUN 17 mg/dL 4.0 - 18.0 Creatinine, Serum 1.0 mg/dL 0.5 - 1.2 Sodium 141 mmol/L 136.0 - 146.0 Potassium 4.1 mmol/L 3.5 - 5.3 Chloride 103 mmol/L 98.0 - 107.0 Carbon Dioxide 26 mmol/L 20.0 - 32.0 Albumin 4.5 g/dL 3.5 - 4.7 Protein, Total 7.4 g/dL 6.4 - 8.2 Calcium 10.0 mg/dL 8.4 - 10.6 Alkaline Phosphatase 59 U/L 10.0 - 118.0 Sgot (Ast) 23 U/L 3.0 - 30.0 SGPT (Alt) 20 U/L 7.0 - 40.0 Bilirubin, Total 0.74 mg/dL 0.3 - 1.2 Laboratory test finding 07/30/2003 Folic Acid > 20.0 NG/ML High 2-16 Vitamin B12 837 pg/mL 180-914 Urine DIP 07/30/2003 Leukocytes NEG Neg Urine Nitrites NEG Neg Urine pH 7 High 5-6 Total Protein, Urine NEG Neg Urine Glucose NORM Norm Urine Ketones NEG Neg Urobolinogen NORM Norm Urine Bilirubin NEG Neg Urine Blood NEG Neg Hemoccult 12/11/2002 Stool-Occult Blood #1 NEG 12/07 Neg Stool-Occult Blood #2 NEG 12/08 Neg Stool-Occult Blood #3 NEG 12/09 Neg Urine DIP 02/11/2002 Leukocytes NEG Neg Urine Nitrites NEG Neg Urine pH 5 5-6 Total Protein, Urine NGE Neg Urine Glucose NORM Norm Urine Ketones NEG Neg Urobolinogen NORM Norm Urine Bilirubin NEG Neg Urine Blood +++ Neg Specific [place] NA Low 1.01-1.02 Lipid Profile 02/11/2002 Cholesterol, Total 242 mg/dL High 120.0 - 200.0 11 Chol/HDL Cholesterol 3.7 12 HDL Cholesterol 65 mg/dL 35.0 - 9999.0 LDL/HDL Cholesterol 2.3 13 LDL Cholesterol 152 mg/dL 14 Triglycerides 124 mg/dL 37.0 - 241.0 1 Because ethnic data is not always readily available, this report includes an eGFR for both -Americans and non- Americans. The National Kidney Disease Education Program (NKDEP) does not endorse the use of the MDRD equation for patients that are not between the ages of 18 and 70, are , have extremes of body size, muscle mass, or nutritional status, or are non- or non-. According to the National Kidney Foundation, irrespective of diagnosis, the stage of the disease is based on the level of kidney function: Stage Description GFR(mL/min/1.73 m(2)) 1 Kidney damage with normal or decreased GFR 90 2 Kidney damage with mild decrease in GFR 60-89 3 Moderate decrease in GFR 30-59 4 Severe decrease in GFR 15-29 5 Kidney failure <15 (or dialysis) 2 [id number] 3 Because ethnic data is not always readily available, this report includes an eGFR for both -Americans and non- Americans. The National Kidney Disease Education Program (NKDEP) does not endorse the use of the MDRD equation for patients that are not between the ages of 18 and 70, are , have extremes of body size, muscle mass, or nutritional status, or are non- or non-. According to the National Kidney Foundation, irrespective of diagnosis, the stage of the disease is based on the level of kidney function: Stage Description GFR(mL/min/1.73 m(2)) 1 Kidney damage with normal or decreased GFR 90 2 Kidney damage with mild decrease in GFR 60-89 3 Moderate decrease in GFR 30-59 4 Severe decrease in GFR 15-29 5 Kidney failure <15 (or dialysis) 4 Classification: High . 5 Classification: High . 6 CALCULATED LDL APPROXIMATES THE VALUE OF A DIRECT LDL MEASUREMENT. Classification: Borderline High . 7 REFERENCE RANGE FOR HOMOCYSTEINE (UMOL/L): AGE MALES FEMALES 0 - 19 Y 4.3 - 9.9 3.3 - 7.2 20 - 39 Y 4.3 - 11.4 3.3 - 10.4 40 - 59 Y 4.3 - 12.9 3.3 - 10.2 > 59 Y 4.3 - 15.3 3.3 - 11.6 THE ESTABLISHED UPPER REFERENCE RANGE CUT-OFF (HIGH FLAG) LISTED IN THIS REPORT IS GENDER SPECIFIC AND BASED ON THE 95TH PERCENTILE FOR A HEALTHY 20-39 YEAR OLD POPULATION (EXCLUDING WOMEN) WITH AMPLE SERUM FOLATE AND B12 LEVELS, AND NO EVIDENCE OF RENAL DISEASE. EXPECTED RANGES FOR HOMOCYSTEINE VARY BY AGE, GENDER, RACE, NUTRITIONAL STATUS (FOLATE AND B12 LEVELS), RENAL FUNCTION AND ALSO BY HORMONAL STATUS, OR INSULIN RESISTANCE. HIGH VALUES ARE SEEN IN ABOUT HALF OF PATIENTS TESTED FROM OLDER AGE GROUPS. HIGHER SERUM HOMOCYSTEINE LEVELS ARE ASSOCIATED WITH INCREASED RISK OF CORONARY HEART DISEASE. TEST PERFORMED BY: [employer]. [id number] [place] [address] 8 WHOLE BLOOD MERCURY LEVEL >50 UG/L IS INDICATIVE OF SIGNIFICANT ACUTE/CHRONIC EXPOSURE. THE PERFORMANCE CHARACTERISTICS OF THIS TEST WERE ESTABLISHED THROUGH VALIDATION BY [facility], AND NO APPROVAL IS REQUIRED BY THE U.S. FOOD AND DRUG ADMINISTRATION (FDA). [facility] IS REGULATED UNDER THE CLINICAL LABORATORY IMPROVEMENT AMENDMENTS OF 1988 ("CLIA") QUALIFIED TO PERFORM HIGH COMPLEXITY CLINICAL TESTING. TEST PERFORMED BY: [employer] [id number] [place] [address] 9 SCANT NORMAL URETHRAL OR PERINEAL JOSE RAFAEL 10^1-10,000 ORGANISMS/ML (FEW)^CCU 10 . Normal Function or Mild Renal Disease, if clinically at risk: >or=60 Moderately decreased: 30 - 59 Severely decreased: 15 - 29 Renal Failure: <15 . Please note that the MDRD equation requires an additional adjustment for -Americans (multiply the GFR result by 1.210). . Glomerular Filtration Rate (GFR) is estimated based on the MDRD equation, which assumes a steady state for creatinine (Oralia Int Med 139/2 137-149, 2003), as recommended by the National Kidney Disease Education Program in conjunction with the National Institutes of Health and the National Kidney Foundation. . Clinical conditions in which it may be necessary to measure GFR by using clearance methods include extremes of age and body size, severe malnutrition or obesity, diseases of skeletal muscle, paraplegia or quadriplegia, vegetarian diet, rapidly changing kidney function, and calculation of the dose of potentially toxic drugs that are excreted by the kidneys. . 11 Cholesterol Risk Levels (NIH) Recommended: under 200 mg/dl Borderline : 200-239 mg/dl High Risk : Above 240 mg/dl . 12 CHOL/HDL Risk Ratio Levels MALE FEMALE 1/2 X Average 3.4 3.3 Average 5.0 4.4 2 X Average 9.5 7.0 3 X Average 24.0 11.0 . 13 LDL/HDL Risk Ratio Levels MALE FEMALE 1/2 X Average 1.00 1.47 Average 3.55 3.22 2 X Average 6.25 5.03 3 X Average 7.99 6.14 . 14 LDL Cholesterol Risk Levels (NIH) Recommended: under 130 mg/dl Borderline: 131 - 159 mg/dl High Risk: above 160 mg/dl . Procedures Date CPT Code Description Status 07/29/2017 15269 EKG, at Least 12 Leads w/Interpretation and Report Completed 07/13/2017 28738 EKG, at Least 12 Leads w/Interpretation and Report Completed 10/29/2004 78667 Oximetry - Single Study Completed 08/06/2004 95613 Removal-Impacted Cerumen Completed Encounters Type Date Location Provider CPT E/M Dx Office Visit 01/31/2018 9:45a Main Office Oumar Muñoz [place] [address] I48.91 W18.09xA F41.9 Office Visit 08/21/2017 11:00a Main Office Oumar Muñoz [place] [address] I48.91 I10 Office Visit 07/29/2017 11:00a Main Office Tiffanie MckeeTANIKA ambriz-C 19175 I48.91 Office Visit 07/13/2017 1:30p [place] [address] M54.5 R00.2 Office Visit 06/22/2017 11:00a Main Office Oumar Muñ[place] [address] M54.5 K21.9 Office Visit 01/27/2017 10:30a Main Office Oumar Muñoz [place] [address] H61.21 M84.452D I10 I82.402 Office Visit 01/09/2017 2:45p Main Office Oumar Muñ[place] [address] M84.452A K21.9 Office Visit 11/09/2016 11:45a Main Office Samantha Campuzano M.D., R.D. 27568 W19.xxxA M25.569 Office Visit 05/12/2016 11:15a Main Office Oumar Muñoz [place] [address] Z71.1 Office Visit 03/21/2016 1:00p Main Office Oumar Muñoz MD G0438 Z00.00 Office Visit 10/07/2015 11:15a Main Office Oumar Muñoz [place] [address] S22.000A S29.012A Office Visit 11/07/2005 1:15p Main Office Ferny Marquez M.D. 41132 V70.0 240.0 111.0 Office Visit 10/22/2005 10:15a Main Office Sadaf Rojas M.D. 82970 599.7 Office Visit 10/29/2004 3:00p Main Office Tiffanie Taylor M.D. 22302 786.2 709.9 Office Visit 10/23/2004 9:30a Main Office Sadaf Rojas M.D. 91108 786.2 Office Visit 08/06/2004 4:30p Main Office Tiffanie Taylor M.D. 41448 380.4 Office Visit 08/03/2004 3:00p Main Office Tiffanie Taylor M.D. 25822 V76.2 V72.31 300.00 V72.3 241.0 Office Visit 07/30/2003 8:30a Main Office Tiffanie Taylor M.D. 35404 715.00 236.3 782.0 V72.3 Office Visit 11/27/2002 9:00a Main Office Tiffanie Taylor M.D. 48094 569.49 V76.9 Office Visit 02/11/2002 8:45a Main Office Tiffanie Tyalor M.D. 81243 V70.0 715.00 Plan of Care Future Appointment(s):03/07/2018 10:30 am - Oumar Muñoz MD at Main Ljrvkn5802/21/2018 - Oumar Muñoz MDI48.91 Unspecified atrial fibrillationComments:She does not seem to have a severe valvular issue at this point, despite her history given previously.She is having more leg edema with the onset coincident with tachycardia. It seems possible her heart function has been less efficient lately due to tachycardia.The first priority is to get her in good rate control.increasing to 100 mg of metoprolol did not seem to make any difference. rather than go up further I will add a small dose of diltiazem.Follow up:2 [id number] Essential (primary) hypertensionNew Medication: Diltiazem HCL 30 mgComments:her blood pressure is not high today. In fact, the biggest risk at this point is dropping it to low with medications we are increasing for other indications.We discussed the symptoms of low blood pressure. She denies any dizziness.R60.9 Edema, unspecifiedComments:She is concerned about her edema and would like to go up on her Lasix. I would like to be sure her electrolytes are reasonable first. Also, lower her heart rate might actually help a lot with his edema.
--- OUTSIDE RECORDS SUMMARY | 2018-02-21 18:40 | XMS REPORT ---
:1935 External Reference #:[id number] Author Organization [facility] Address [address] [place] [address] Phone [phone] Care Team Providers Name Role Phone Oumar Muñoz MD Care Team Information Contact Lens Assistant Unavailable Payers Type Date Identification Numbers Payment Provider Subscriber Health Maintenance Effective: Policy Number: [facility] Vilma Burrell [facility] ([facility]) 09/[birth year]1999 [id number] Expires: 09/24/2010 Group Number: [id number] [address] PayID: [id number] [place] [address] Medicare Primary Effective: Policy Number: Medicare - Bswny Vilma Burrell 10/26/2006 [id number] [facility] PayID: [id number] [address] [place] [address] Medigap Part B Policy Number: [id number] [place] Burrell Group Number: [id number] [address] Group Name: [place] [address] PayID: [id number] Problems Description No Information Family History Date Family Member(s) Problem(s) Comments General Osteoarthritis Father Osteoarthritis Father due to Alcoholism () Father Leukemia Father due to In His 80S () : (age 84 Mother due to [place] Years) Mother Polymyalgia Rheumatica Mother Hypothyroid Mother [...] Form Strength Qnty SIG Indications Ordering Provider Buspirone HCL 01/31 Active Tablets 5mg 60tab 1 tab by F41.9 Oumar s mouth four [place] times a day , as needed Metoprolol 08/13 Active Tablets 25mg 90tab 3 by mouth Oumar Succinate ER ER 24HR s every day MD Toni Walk-In Shower 06/22 Active 1unit with Oumar s handrails - Toni to assist MD with safety due to osteoarthri tis and unsteady gait Xarelto 01/27 Active Tablets 20mg 30tab Take One Oumar s Tablet By [place] Mouth Every , Day Hydrochlorothiazid 01/27 Active Capsules 12.5mg 30cap Take One I10 Oumar e s Capsule By [place] Mouth Every , Morning Physical Therapy 01/23 Active Recovering from femur [place] fracture, , please continue physical therapy. Omeprazole 01/09 Active Capsules 20mg 30cap Take One K21.[address] s Capsule By [place] Mouth Every , Day Loratadine 10/07 Active Tablets 10mg 90tab 1 tab by Oumar s mouth daily MD Toni Metoprolol 07/24 Hx Tablets 50mg 90tab 1 1/2 by Oumar Succinate ER 24HR s mouth every Toin - MD yelitza 08/13 Cyclobenzaprine 07/06 Hx Tablets 5mg 45tab Take One Oumar HCL s Tablet By [place] - Mouth AT MD 01/31 Bedtime as Needed Skelaxin 06/22 Hx Tablets 800mg 20tab take 1 M54.5 Oumar s tablet by [place] - mouth MD jose 06/22 bedtime for muscle spasm Hydrocodone-Acetam 11/09 Hx Tablets 5-325mg 10tab 1/2-1 M25.569 Oumar inophen s tablet bid Toni - for severe MD 01/31 pain Metoprolol 03/24 Hx Tablets 25mg 90tab take two Oumar Succinate ER 24HR s tablets by Toni harkins MD Metoprolol 10/07 Hx Tablets 50mg 45tab 1 1/2 by Oumar Succinate ER 24HR s mouth daily Toni Blankenship MD 03/24 Xarelto 10/07 Hx Tablets 10mg 30tab take one Oumar s tablet by Toni harkins MD 01/27 Excuse From Work 10/29 Hx Vilma sanju Moreno return to [email or web address], - work as of M.DMitzi 11/0711/01/04. /2005 Immunizations CPT Code Status Date Vaccine Lot # [id number] Refused 07/13/2017 Influenza Virus Vaccine, Quadrivalent, 3 Yr > Quad, Preserv Free 98000 Refused 03/21/2016 Zoster Vaccine Vital Signs Date Vital Result Comment 01/31/2018 Weight 182.00 lb Weight in kg's [...] Test Date Test Result H/L Range Note CBC Auto Diff 08/21/2017 White Blood Count [...] NEG Neg Urine Blood NEG Neg Specific [place] N/A Low 1.01-1.02 Urine DIP 10/24/2005 Leukocytes 2+ High Neg Urine Nitrites NEG Neg Urine pH 5 5-6 Total Protein, Urine TRACE Neg Urine Glucose NL Norm Urine Ketones NL Neg Urobilinogen NL Norm Urine Bilirubin NL Neg Urine Blood 50 High Neg Specific [place] N/A Low 1.01-1.02 Urine Culture And 10/22/2005 Urine Culture SCANT NORMAL URE 9 Sensitivites Sensitivi <SEE NOTE> Urine DIP 10/22/2005 Leukocytes NEG Neg Urine Nitrites NEG Neg Urine pH 5 5-6 Total Protein, Urine TRACE Neg Urine Glucose NL Norm Urine Ketones NL Neg Urobilinogen NL Norm Urine Bilirubin NL Neg Urine Blood 50 High Neg Specific [place] N/A Low 1.01-1.02 Laboratory test finding 10/29/2004 Oximetry - Single Study 97% Urine DIP 08/06/2004 Leukocytes 2+ High Neg Urine Nitrites NEG Neg Urine pH 5 5-6 Total Protein, Urine NEG Neg Urine Glucose NORM Norm Urine Ketones NEG Neg Urobolinogen NORM Norm Urine Bilirubin NEG Neg Urine Blood 100 High Neg Specific [place] NA Low 1.01-1.02 Laboratory test finding 08/03/2004 [...] Bilirubin, Total 0.74 mg/dL 0.3 - 1.2 Urine DIP 07/30/2003 Leukocytes NEG Neg Urine Nitrites NEG Neg Urine pH 7 High 5-6 Total Protein, Urine NEG Neg Urine Glucose NORM Norm Urine Ketones NEG Neg Urobolinogen NORM Norm Urine Bilirubin NEG Neg Urine Blood NEG Neg Laboratory test finding 07/30/2003 Folic Acid > 20.0 NG/ML High 2-16 Vitamin B12 837 pg/mL 180-914 Hemoccult 12/11/2002 Stool-Occult Blood #1 NEG 12/07 Neg Stool-Occult Blood #2 NEG 12/08 Neg Stool-Occult Blood #3 NEG 12/09 Neg Urine DIP 02/11/2002 Leukocytes NEG Neg Urine Nitrites NEG Neg Urine pH 5 5-6 Total Protein, Urine NGE Neg Urine Glucose NORM Norm Urine Ketones NEG Neg Urobolinogen NORM Norm Urine Bilirubin NEG Neg Urine Blood +++ Neg Specific [place] NA Low 1.01-1.02 Lipid Profile 02/11/2002 Cholesterol, [...] 5 Kidney failure <15 (or dialysis) 2 [id number] 3 Because ethnic data is not always [...] OF CORONARY HEART DISEASE. TEST PERFORMED BY: [employer]. [id number] [place] [address] 8 WHOLE BLOOD MERCURY LEVEL >50 UG/L IS INDICATIVE OF SIGNIFICANT ACUTE/CHRONIC EXPOSURE. THE PERFORMANCE CHARACTERISTICS OF THIS TEST WERE ESTABLISHED THROUGH [employer]ID[employer], AND NO APPROVAL IS REQUIRED BY THE [place]. FOOD AND DRUG ADMINISTRATION (FDA). [employer] IS REGULATED UNDER THE CLINICAL LABORATORY IMPROVEMENT AMENDMENTS OF 1988 ("CLIA") QUALIFIED TO PERFORM HIGH COMPLEXITY CLINICAL TESTING. TEST PERFORMED BY: [employer]. [id number] [place] [address] 9 SCANT NORMAL URETHRAL OR PERINEAL JOSE [...] Procedures Date CPT Code Description Status 07/29/2017 68367 EKG, at Least 12 Leads w/Interpretation and Report Completed 07/13/2017 52886 EKG, at Least 12 Leads w/Interpretation and Report Completed 10/29/2004 12163 Oximetry - Single Study Completed 08/06/2004 71191 Removal-Impacted Cerumen Completed Encounters Type Date Location Provider CPT E/M Dx Office Visit 08/21/2017 11:00a Main Office Oumar Muñ[place] [address] I48.91 I10 Office Visit 07/29/2017 11:00a Main Office Tiffanie Daugherty, FLOUR INSPECTOR-C 60796 I48.91 Office Visit 07/13/2017 1:30p Main Office Sandi Kearns, PREFLIGHT MECHANIC 66235 M54.5 R00.2 Office Visit 06/22/2017 11:00a Main Office Oumar Muñ[place] [address] M54.5 K21.9 Office Visit 01/27/2017 10:30a Main Office Oumar Muñ[place] [address] H61.21 M84.452D I10 I82.402 Office Visit 01/09/2017 2:45p Main Office Oumar Muñ[place] [address] M84.452A K21.9 Office Visit 11/09/2016 11:45a Main Office Samantha Campuzano M.D., R.D. 31489 W19.xxxA M25.569 Office Visit 05/12/2016 11:15a Main Office Oumar Muñ[place] [address] Z71.1 Office Visit 03/21/2016 1:00p Main Office Oumar Muñoz MD G0438 Z00.00 Office Visit 10/07/2015 11:15a Main Office Oumar Muñ[place] [address] S22.000A S29.012A Office Visit 11/07/2005 1:15p Main Office Ferny Marquez M.D. 39158 V70.0 240.0 111.0 Office Visit 10/22/2005 10:15a Main Office Sadaf Rojas M.D. 55711 599.7 Office Visit 10/29/2004 3:00p Main Office Tiffanie Taylor M.D. 82734 786.2 709.9 Office Visit 10/23/2004 9:30a Main Office Sadaf Rojas M.D. 38595 786.2 Office Visit 08/06/2004 4:30p Main Office Tiffanie Taylor M.D. 85683 380.4 Office Visit 08/03/2004 3:00p Main Office Tiffanie Taylor M.D. 77987 V76.2 V72.31 300.00 V72.3 241.0 Office Visit 07/30/2003 8:30a Main Office Tiffanie Taylor M.D. 75666 715.00 236.3 782.0 V72.3 Office Visit 11/27/2002 9:00a Main Office Tiffanie Taylor M.D. 42024 569.49 V76.9 Office Visit 02/11/2002 8:45a Main Office Tiffanie Taylor M.D. 66965 V70.0 715.00 Plan of Care 01/31/2018 - Oumar Muñoz MDW18.09xA Striking against oth object w subsequent fall, init encntrComments:Minor injury to thorax. Could get Xprays if not resolving soon.I48.91 Unspecified atrial fibrillationNew Orders: EchocardiogramComments:She has a valvular issue that has never been fully evaluated or followed up on. It's time to get an echo.Follow up:Refer for echoF41.9 Anxiety disorder, unspecifiedNew Medication:Buspirone HCL 5 mgComments :Wants something short acting to get her through anxiety issues. She wonders if a blend of unknown panamanian herbs is a safe option- I have no way of guaranteeing this. Will try buspar instead.Recommendations:MAgnesium
[2018-02-21] MEDS ORDERED: Diltiazem IV* 5 MG/ML 5 ML VIAL (for loading dose/IV Push) (25 MG) IV SLOW PU ONE ×2 (20:48→21:21)
[2018-02-21 20:56] LABS: ABS Basophils 0 10^3/ul (0-0.2); ABS Eosinophils 0 10^3/ul (0-0.6); ABS Lymphocytes 0.6 10^3/ul (1.0-4.8); ABS Monocytes 0.9 10^3/ul (0-0.8); ABS Neutrophils 3.5 10^3/ul (1.5-7.7); ABS Nucleated RBC 0 10^3/ul; Eosinophil % 0.3 % (0-6); Hematocrit 33 % (35-47); Hemoglobin 11.3 g/dl (12.0-16.0); Lymphocyte % 11.9 % (25-47); Mean Corpuscular HGB Conc 34 g/dl (31-36); Mean Corpuscular Hemoglobin 31 pg (27-31); Mean Corpuscular Volume 92 fL (80-97); Mean Platelet Volume 7.3 um3 (7.4-10.4); Nucleated Red Blood Cells % 0.1; Platelet Count 173 10^3/ul (150-450); Red Blood Count 3.63 10^6/ul (4.0-5.4); Red Cell Distribution Width 13 % (10.5-15)
[2018-02-21 21:06] LABS: INR 1.13 (0.77-1.02)
[2018-02-21 21:13] LABS: EGFR Non-African American 95.7 (>60)
[2018-02-21] MEDS ORDERED: Enoxaparin(*) 80 MG/0.8 ML SYR SUBCUT ONE (21:15)
[2018-02-21] MEDS ORDERED: Digoxin IV* 0.5 MG/2 ML AMP (0.25 MG/ML) IV SLOW PU ONE (21:15)
[2018-02-21] MEDS ORDERED: NS 0.9% 1000 ML* 1,000 ML IV SCH (21:45)
[2018-02-21] MEDS ORDERED: Metoprolol Tartrate IV* 1 MG/ML 5 ML VIAL IV ONE (22:02)
[2018-02-21] MEDS ORDERED: Ondansetron INJ* 2 MG/ML VIAL IV PRN (22:09)
--- NOTE | 2018-02-21 22:11 | ED ---
Neil Owen Tiffany, scribed for Bk Larose MD on 02/21/18 at 2031 . Complex/Multi-Sys Presentation - HPI Summary HPI Summary: 83 y/o F presents to [facility] from PMD with low sodium level (117) since this morning. Symptoms aggravated and alleviated by nothing. Reports bilateral leg edema. Pt was seeing PMD for high pulse and for switching diuretic medication. - History Of Current Complaint Chief Complaint: EDGeneral Time Seen by Provider: 02/21/18 20:15 Hx Obtained From: Patient Onset/Duration: Lasting Hours - This morning, Still Present Aggravating Factor(s): Nothing Alleviating Factor(s): Nothing Associated Signs And Symptoms: Positive: Edema - bilateral leg - Allergies/Home Medications Allergies/Adverse Reactions: Allergies Allergy/AdvReac Type Severity Reaction Status Date / Time No Known Allergies Allergy Verified 02/21/18 17:29 Home Medications: Home Medications Calcium Citrate/Vitamin D3 [Calcium Citrate - Vit D Tablet] 1 each PO DAILY [History Confirmed 02/21/18] Glucosamine CAP (NF) 1,000 cap PO DAILY 02/21/18 [History Confirmed 02/21/18] Hydrochlorothiazide TAB* [Hydrodiuril TAB*] 12.5 mg PO DAILY 02/21/18 [History Confirmed 02/21/18] Kelp 1 each PO DAILY 02/21/18 [History Confirmed 02/21/18] Metoprolol Tartrate TAB* [Lopressor TAB*] 100 mg PO DAILY 02/21/18 [History Confirmed 02/21/18] Multivitamins/Minerals TAB* [Theragran/minerals TAB*] 1 tab PO DAILY 02/21/18 [ History Confirmed 02/21/18] Omeprazole CAP* [Prilosec CAP* 20 MG] 20 mg PO DAILY 02/21/18 [History Confirmed 02/21/18] Rivaroxaban TAB(*) [Xarelto 20 mg] 20 mg PO DAILY 02/21/18 [History Confirmed ] Vitamin E CAP* 400 unit PO DAILY 02/21/18 [History Confirmed 02/21/18] PMH/Surg Hx/FS Hx/Imm Hx Previously Healthy: No Endocrine/Hematology History: Reports: Hx Anemia Denies: Hx Anticoagulant Therapy, Hx Diabetes, Hx Thyroid Disease Cardiovascular History: Reports: Hx Hypertension, Other Cardiovascular Problems/ Disorders - A FIB Respiratory History: Denies: Hx Asthma GI History: Reports: Hx Gastroesophageal Reflux Disease Musculoskeletal History: Reports: Hx Arthritis, Hx Osteoporosis Sensory History: Reports: Hx Contacts or Glasses, Hx Hearing Aid Opthamlomology History: Reports: Hx Contacts or Glasses - Surgical History Surgery Procedure, Year, and Place: benign fibroid (2000), 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 GENERAL: Patient is a well-developed and nourished (MALE OR FEMALE) who is lying comfortable in the stretcher. Patient is not in any acute respiratory distress. HEAD AND FACE: No signs of trauma. No ecchymosis, hematomas or skull depressions. No sinus tenderness. EYES: PERRLA, EOMI x 2, No injected conjunctiva, no nystagmus. EARS: Hearing grossly intact. Ear canals and tympanic membranes are within normal limits. MOUTH: Oropharynx within normal limits. NECK: Supple, trachea is midline, no adenopathy, no JVD, no carotid bruit, no c- spine tenderness, neck with full ROM. CHEST: Symmetric, no tenderness at palpation LUNGS: Clear to auscultation bilaterally. No wheezing or crackles. CVS: Patient has irregular tachycardia ABDOMEN: Soft, non-tender. No signs of distention. No rebound no guarding, and no masses palpated. Bowel sounds are normal. EXTREMITIES: Patient has bilateral lower extremity edema (right leg more than left leg) with venous changes. NEURO: Alert and oriented x 3. No acute neurological deficits. Speech is normal and follows commands. SKIN: Dry and warm Triage Information Reviewed: Yes Vital Signs On Initial Exam: Initial Vitals Temp Pulse Resp BP Pulse Ox 97.8 F 78 19 144/96 95 02/21/18 17:25 02/21/18 17:25 02/21/18 17:25 02/21/18 17:25 02/21/18 17:25 Vital Signs Reviewed: Yes Diagnostics - Vital Signs Vital Signs Temp Pulse Resp BP Pulse Ox 02/21/18 19:47 98.3 F 60 20 114/73 96 02/21/18 17:25 97.8 F 78 19 144/96 95 - Laboratory Result Diagrams: 02/21/18 20:43 02/21/18 20:43 Lab Statement: Any lab studies that have been ordered have been reviewed, and results considered in the medical decision making process. - EKG 20:36 Cardiac Rate: Tachycardia - 138 BPM EKG Rhythm: Atrial Fibrillation Complex Multi-Symp Course/Dx Course Of Treatment: 83 y/o F presents to [facility] from PMD with low sodium level ( 117) since this morning. Bloodwork and imaging obtained. Pt will be admitted to Dr. Frankel, hospitalist. - Diagnoses Provider Diagnoses: Hyponatremia, New onset atrial fibrillation - Physician Notifications Discussed Care Of Patient With: Chad Frankel Time Discussed With Above Provider: 21:25 Instructed by Provider To: Other - Dr. Parsons, hospitalist, agrees to admit pt. Discharge - Sign-Out/Discharge Documenting (check all that apply): Discharge/Admit/Transfer - Discharge Plan Condition: Fair Disposition: ADMITTED TO [facility] Referrals: Oumar Muñoz MD [Primary Care Provider] - The documentation as recorded by the Neil gonsalez Tiffany accurately reflects the service I personally performed and the decisions made by , Bk Larose MD.
[2018-02-21] MEDS ORDERED: Magnesium Sulfate 2 GM IV* 2 GM/50 ML BAG IVPB ONE (22:26)
[2018-02-21] MEDS ORDERED: Potassium Chlor TAB* 20 MEQ TAB.ER PO ONE (22:26)
[2018-02-21] MEDS: NS 0.9% 1000 ML* 1,000 ML IV SCH ×2 (22:29→23:45)
[2018-02-21] MEDS: Diltiazem TAB* 30 MG PO SCH (23:47)
[2018-02-22 00:19] LABS: EGFR Non-African American 112.9 (>60)
[2018-02-22] MEDS: Rivaroxaban TAB(*) 20 MG TAB PO SCH ×2 (00:19→17:34)
[2018-02-22] MEDS: Metoprolol Tartrate IV* 1 MG/ML 5 ML VIAL IV PRN ×2 (01:09→07:20)
--- NOTE | 2018-02-22 03:21 | HP ---
CC: Dr. Muñoz * HISTORY AND PHYSICAL: DATE OF ADMISSION: 02/21/18 PRIMARY CARE PROVIDER: Dr. Muñoz. ATTENDING PHYSICIAN WHILE IN THE HOSPITAL: Dr. Chad Frankel * (report dictated by Geo Hendrix NP). CHIEF COMPLAINT: 1. Low sodium. 2. Rapid pulse. HISTORY OF PRESENT ILLNESS: Ms. 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 There is a history of GERD, femoral fracture and left humerus fracture, and anxiety. She comes into the ED today. She is being evaluated by Dr. Muñoz. The patient apparently has been having issues with a rapid pulse according to the patient several weeks now, intermittently she has been feeling it, checking the pulse and it has been intermittently fast. She does have a known history of AFib. She has been following closely with Dr. Muñoz. He actually saw her today and labs were ordered due to the fact that she had some increasing edema and the fact her heart rate was fast. It was ultimately noted that she had a hyponatremia. He was going to start the patient on diltiazem 30 twice a day to help control the rate. The patient denied having any syncopal episode. She denied feeling dizzy. She denied any chest pains. She denies having any abdominal pain. There has been no nausea, vomiting, or diarrhea. She has been taking her hydrochlorothiazide as prescribed and she says she has been feeling well. She has not really had any reports of again chest pressure, heaviness, no fevers or chills. In the outpatient setting though, it was noted that the sodium was 118 , so because of this, she was referred to the ER and then in the ED, it was noted she was in AFib with RVR and the sodium in fact was 118. Because of this , we were asked to evaluate for admission. PAST MEDICAL HISTORY: Significant for: 1. AFib. 2. History of DVT. 3. 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 4. She has a history of left humerus fracture and femur fracture. 5. History of GERD. 6. Anxiety. PAST SURGICAL HISTORY: She has had an IVC filter and she has had her uterine tumor removed, which she says was benign. HOME MEDICATIONS: According to the list that was provided by Dr. Muñoz' office include: 1. Diltiazem 30 mg p.o. b.i.d. She is supposed to start tonight. 2. BuSpar 5 mg 4 times a day as needed. 3. Claritin 10 mg daily. 4. Toprol-XL 100 mg daily. 5. Glucosamine 1000 mg p.o. daily. 6. Vitamin E 400 units p.o. daily. 7. Kelp 1 capsule p.o. daily. 8. Calcium citrate 1 tablet daily. 9. Omeprazole 20 mg daily. 10. Multivitamin 1 tablet daily. 11. Hydrochlorothiazide 12.5 mg daily. 12. Xarelto 20 mg p.o. daily. ALLERGIES TO MEDICATIONS: Include no known drug allergies. FAMILY HISTORY: Mother had heart disease, CAD. Father had a history of leukemia. Both are in their 80s. SOCIAL HISTORY: She does not smoke. She does not drink. Surrogate decision maker is her son, Ezra, and her adopted daughter, Sadaf. REVIEW OF SYSTEMS: There is no documented fever. She denies any significant weight change. There is no double vision. She denies having any ear discharge. There is no rhinorrhea. No sore throat. No thyroid enlargement. She denies having any chest pain. There is no orthopnea. There is no nocturnal dyspnea. She denies having any abdominal pain. No recent diarrhea. No loss of consciousness. No pruritus and no skin ulcerations. Review of 14 systems completed, all others negative. PHYSICAL EXAMINATION GENERAL: At this time, Ms. Burrell is an 83-year-old female patient; she is sitting in the ER stretcher. She does not appear to be in any acute distress. VITAL SIGNS: Blood pressure 105/67, pulse 137, respirations 18, O2 sat 94%, temperature 98.3. HEENT: Head is atraumatic, normocephalic. Eyes: EOMs are intact. Sclerae anicteric and not pale. Throat: Oral mucosa appears to be moist. No oropharyngeal erythema. NECK: Supple. LUNGS: Clear to auscultation. No wheezes, rales, or rhonchi. HEART: Sounds S1, S2. Irregularly irregular rate. No murmurs, rubs, or gallops. ABDOMEN: Soft, flat, nontender. Bowel sounds were present. EXTREMITIES: Pulses were 2+ throughout. She did have +2 pitting edema. She is moving all 4 extremities with 5/5 strength. NEUROLOGICAL: The patient is awake. She is alert, she is oriented x3. Customer Complaint Service Supervisor were equal. No gross focal deficits. SKIN: Intact. LABORATORY DATA/DIAGNOSTIC STUDIES: Today revealing a WBC of 5.0, RBC of 3.63 , hemoglobin of 11.3, hematocrit 33, platelet count of 173. The INR was 1.13, PTT of 32.7. The sodium was 118. When I look back in the previous records, her sodium has been chronically low, last time we have records here was 127 and 130. Her chloride was 87, potassium 3.7, BUN of 11, creatinine of 0.60, glucose of 112, calcium 8.8, mag 1.9, total bili 1.0. AST 28, ALT 24, alk phos 118. Troponin 0. Albumin of 3.7. Urine is pending. She had an EKG obtained today, which when I review it, she appears to be in atrial fibrillation, rate of 138. No ST elevations or T-wave inversions were noted. When I review back from the last 2 previous EKGs, she was in a sinus rhythm. Again, she does have a history of paroxysmal AFib. Old medical records were reviewed. ASSESSMENT AND PLAN: Ms. Burrell is an 83-year-old female patient coming into the ED today with complaints of rapid pulse over the last couple weeks and in addition of this, also having abnormal blood work today. She will be admitted under inpatient status for: 1. Hyponatremia. I will place her in the ICU with a sodium of 118. I am concerned for neurological deficits although she is not having any at this point. At this point, I am concerned for possible seizures, so I would like to monitor her closely in case I need to put her on 3%, but for now, I am going to start normal saline at 100 an hour, BMPs every 4 hours, and try to slowly correct as I suspect the culprit is probably the hydrochlorothiazide. I will send off a urine osmolality, serum osmolality, urine sodium and also check a TSH and cortisol level and we will continue to follow this closely. 2. Atrial fibrillation with RVR. Again, she has probably been in and out of this for the last of couple weeks. Her PCP just had an echocardiogram done. Her EF was preserved. She does not have a routine crucible furnace tender. She is asymptomatic. I am going to continue the Xarelto. I would like to try to give her p.r.n. Lopressor 2.5 mg IV right now and then p.r.n. I have also started her on the diltiazem, which she was supposed to start taking to see how she tolerates this here in the hospital. If we are still having hard time controlling this, then I would get Cardiology involved and we will continue to monitor her. I am going to replace her potassium and her magnesium as well and replacing the sodium should help. 3. History of deep vein thrombosis. She is on Xarelto. 4. Gastroesophageal reflux disease. Continue PPI therapy. 5. History of anxiety. Continue supportive care. 6. DVT prophylaxis. Again , she is on Xarelto. 7. Code status. She wished to be a DNR. There is a MOLST in the computer. 8. Fluids, electrolytes, nutrition. She can have a heart-healthy diet. TIME SPENT: Time spent on the admission was 60 minutes; greater than half the time was spent [id number] with the patient obtaining my history and physical, other half the time was spent going over the plan of care with the patient and implementing plan of care. I did discuss the plan of care with my attending, Dr. Frankel; he is in agreement. GEO HENDRIX, ANDRÉS [id number]/[facility] #: [id number] YVONNE
[2018-02-22 04:19] LABS: EGFR Non-African American 120.9 (>60)
[2018-02-22 04:52] LABS: ABS Basophils 0 10^3/ul (0-0.2); ABS Eosinophils 0 10^3/ul (0-0.6); ABS Lymphocytes 0.6 10^3/ul (1.0-4.8); ABS Monocytes 0.9 10^3/ul (0-0.8); ABS Neutrophils 2.8 10^3/ul (1.5-7.7); ABS Nucleated RBC 0 10^3/ul; Eosinophil % 0.6 % (0-6); Hematocrit 32 % (35-47); Hemoglobin 11.1 g/dl (12.0-16.0); Lymphocyte % 14.7 % (25-47); Mean Corpuscular HGB Conc 35 g/dl (31-36); Mean Corpuscular Hemoglobin 32 pg (27-31); Mean Corpuscular Volume 92 fL (80-97); Mean Platelet Volume 7.7 um3 (7.4-10.4); Nucleated Red Blood Cells % 0; Platelet Count 166 10^3/ul (150-450); Red Blood Count 3.48 10^6/ul (4.0-5.4); Red Cell Distribution Width 14 % (10.5-15); White Blood Count 4.3 10^3/ul (3.5-10.8)
[2018-02-22 04:55] LABS: INR 1.88 (0.77-1.02)
[2018-02-22] MEDS: Acetaminophen TAB* 325 MG PO PRN (06:00)
[2018-02-22 07:01] LABS: EGFR Non-African American 118.1 (>60)
[2018-02-22] MEDS ORDERED: Diltiazem DRIP* 100 MG/100 ML ADDV.BAG IVPB ONE (07:50)
[2018-02-22] MEDS ORDERED: NS 0.9% 500 ML* 500 ML IV SCH (08:00)
[2018-02-22] MEDS: Omeprazole CAP* 20 MG PO SCH (08:20)
[2018-02-22] MEDS: Metoprolol Succinate XL TAB* 100 MG PO SCH (08:20)
[2018-02-22] MEDS: Diltiazem TAB* 30 MG PO SCH ×3 (08:21→14:55)
[2018-02-22] MEDS ORDERED: Furosemide IV* 10 MG/ML 2 ML VIAL (20 MG) IV SLOW PU ONE ×2 (08:54→14:01)
[2018-02-22] MEDS ORDERED: Furosemide IV* 10 MG/ML 2 ML VIAL (20 MG) ONE (08:59)
[2018-02-22] MEDS ORDERED: Digoxin IV* 0.5 MG/2 ML AMP (0.25 MG/ML) IV SLOW PU ONE ×2 (10:52→18:42)
[2018-02-22 12:31] LABS: EGFR Non-African American 123.8 (>60)
--- NOTE | 2018-02-22 14:12 | PN ---
Subjective Date of Service: 02/22/18 Interval History: HOSPITALIST PROGRESS NOTE Patient seen and examined at bedside. Care reviewed and d/w Nelly Liang RN. She feels better today. States her dyspnea is less intense, palpitations are still present. Family History: Unchanged from Admission Social History: Unchanged from Admission Past Medical History: Unchanged from Admission Objective Active Medications: Acetaminophen (Tylenol Tab*) 650 mg PO Q4H PRN PRN Reason: FEVER/PAIN Last Admin: 02/22/18 06:00 Dose: 650 mg Diltiazem HCl (Cardizem Tab*) 30 mg PO TID [facility] Last Admin: 02/22/18 09:20 Dose: 30 mg Diltiazem HCl (Cardizem Iv Advan*) 100 mg in 100 mls @ 5 mls/hr IVPB ONCE ONE; 5 MG/HR PRN Reason: Protocol Stop: 02/23/18 03:49 Last Admin: 02/22/18 08:45 Dose: 5 mls/hr Metoprolol Succinate (Toprol Xl Tab*) 100 mg PO DAILY [facility] Last Admin: 02/22/18 08:20 Dose: 100 mg Omeprazole (Prilosec Cap*) 20 mg PO DAILY [facility] Last Admin: 02/22/18 08:20 Dose: 20 mg Ondansetron HCl (Zofran Inj*) 4 mg IV Q6H PRN PRN Reason: NAUSEA Rivaroxaban (Xarelto(*)) 20 mg PO 1700 [facility] Last Admin: 02/22/18 00:19 Dose: 20 mg Vital Signs - 8 hr 02/22/18 02/22/18 02/22/18 06:30 07:00 07:31 Temperature Pulse Rate 129 141 132 Respiratory 14 13 22 Rate Blood Pressure 126/108 114/90 93/82 (mmHg) O2 Sat by Pulse 94 89 93 Oximetry 02/22/18 02/22/18 02/22/18 07:45 08:00 08:01 Temperature 98.2 F Pulse Rate 130 136 Respiratory 15 14 20 Rate Blood Pressure 121/85 (mmHg) O2 Sat by Pulse 96 84 Oximetry 02/22/18 02/22/18 02/22/18 08:15 08:30 08:45 Temperature Pulse Rate 132 141 134 Respiratory 15 16 22 Rate Blood Pressure 134/94 122/91 122/96 (mmHg) O2 Sat by Pulse 93 95 94 Oximetry 02/22/18 02/22/18 02/22/18 09:00 09:16 09:31 Temperature Pulse Rate 120 122 126 Respiratory 18 17 21 Rate Blood Pressure 119/79 125/95 109/75 (mmHg) O2 Sat by Pulse 95 91 92 Oximetry 02/22/18 02/22/18 02/22/18 09:45 10:00 10:15 Temperature Pulse Rate 130 131 123 Respiratory 27 16 22 Rate Blood Pressure 78/69 95/77 75/67 (mmHg) O2 Sat by Pulse 92 92 92 Oximetry 02/22/18 02/22/18 02/22/18 10:30 10:45 11:00 Temperature Pulse Rate 123 127 116 Respiratory 17 26 22 Rate Blood Pressure 100/70 91/67 93/78 (mmHg) O2 Sat by Pulse 93 92 94 Oximetry 02/22/18 02/22/18 02/22/18 11:07 11:08 11:15 Temperature Pulse Rate 118 120 116 Respiratory 15 19 17 Rate Blood Pressure 93/78 93/78 93/72 (mmHg) O2 Sat by Pulse 94 93 93 Oximetry 02/22/18 02/22/18 02/22/18 11:18 11:31 11:45 Temperature Pulse Rate 112 139 106 Respiratory 19 16 Rate Blood Pressure 83/48 103/73 (mmHg) O2 Sat by Pulse 89 95 Oximetry 02/22/18 02/22/18 02/22/18 12:00 12:15 12:30 Temperature Pulse Rate 115 118 108 Respiratory 24 20 14 Rate Blood Pressure 109/73 106/77 117/77 (mmHg) O2 Sat by Pulse 95 90 95 Oximetry 02/22/18 02/22/18 02/22/18 12:46 13:00 13:02 Temperature Pulse Rate 107 120 131 Respiratory 26 20 27 Rate Blood Pressure 105/71 99/84 (mmHg) O2 Sat by Pulse 95 89 91 Oximetry 02/22/18 13:16 Temperature Pulse Rate 120 Respiratory 23 Rate Blood Pressure 118/91 (mmHg) O2 Sat by Pulse 95 Oximetry Oxygen Devices in Use Now: Nasal Cannula Appearance: Pleasant elderly lady sitting up in a recliner in NAD. Eyes: No Scleral Icterus Ears/Nose/Mouth/Throat: Mucous Membranes Moist Neck: Trachea Midline Respiratory: Symmetrical Chest Expansion and Respiratory Effort, - - BS+ bilaterally with bilateral crackles Cardiovascular: - - Normal S1 and S2, irregularly irregular Extremities: - - Bilateral LE pitting edema Neurological: Alert and Oriented x 3, NL Muscle Strength and Tone Result Diagrams: 02/22/18 04:34 02/22/18 12:03 Assess/Plan/Problems-Billing Assessment: Mrs. 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 - Patient Problems (1) Hyponatremia Comment: - Suspect secondary to SIADH/HCTZ use. - Urine osmolality >250 despite initial serum sodium of 118. - She is showing signs of fluid overload - will d/c IVF, diurese with Furosemide , start fluid restriction and change diet to regular diet. If not enough, may add salt tablets/demeclocycline. - Asymptomatic at this time. - Continue to monitor sodium. (2) Atrial fibrillation with RVR Comment: - Started on Cardizem drip today, on top of Metoprolol, but BP could not tolerate it. - Will load with digoxin. - Continue Xarelto. - If unable to control rate will consult Cardiology for possible CV. (3) Diastolic CHF, acute on chronic Comment: - Echo done 02/14 showed EF 50-55%. Suspect she's decompensated now due to persiste Afib with uncontrolled rate. - Continue diuresis. (4) DVT prophylaxis Comment: - Xarelto. (5) DNR (do not resuscitate) Status and Disposition: Inpatient. Will continue to monitor in ICU.
[2018-02-22 20:08] LABS: EGFR Non-African American 99.5 (>60)
[2018-02-23 06:46] LABS: EGFR Non-African American 120.9 (>60)
[2018-02-23] MEDS ORDERED: Furosemide IV* 10 MG/ML 2 ML VIAL (20 MG) IV SLOW PU ONE (07:15)
[2018-02-23] MEDS: Metoprolol Succinate XL TAB* 100 MG PO SCH (08:05)
[2018-02-23] MEDS: Omeprazole CAP* 20 MG PO SCH (08:09)
[2018-02-23] MEDS ORDERED: Digoxin IV* 0.5 MG/2 ML AMP (0.25 MG/ML) IV SLOW PU ONE ×3 (08:10→15:00)
[2018-02-23] MEDS ORDERED: Digoxin TAB* 0.25 MG PO SCH (09:00)
[2018-02-23] MEDS ORDERED: Metoprolol Tartrate IV* 1 MG/ML 5 ML VIAL IV ONE (12:17)
--- NOTE | 2018-02-23 14:04 | PN ---
Subjective Date of Service: 02/23/18 Interval History: HOSPITALIST PROGRESS NOTE Patient seen and examined at bedside. Care reviewed and d/w Edelmira Tyson RN. She feels better today. Denies CP, palpitations, breathing is improved. Family History: Unchanged from Admission Social History: Unchanged from Admission Past Medical History: Unchanged from Admission Objective Active Medications: Acetaminophen (Tylenol Tab*) 650 mg PO Q4H PRN PRN Reason: FEVER/PAIN Last Admin: 02/22/18 06:00 Dose: 650 mg Digoxin (Digoxin Iv*) 0.25 mg IV SLOW PU ONCE ONE Stop: 02/23/18 15:01 Metoprolol Succinate (Toprol Xl Tab*) 100 mg PO DAILY [facility] Last Admin: 02/23/18 08:05 Dose: Not Given Omeprazole (Prilosec Cap*) 20 mg PO DAILY [facility] Last Admin: 02/23/18 08:09 Dose: 20 mg Ondansetron HCl (Zofran Inj*) 4 mg IV Q6H PRN PRN Reason: NAUSEA Rivaroxaban (Xarelto(*)) 20 mg PO 1700 [facility] Last Admin: 02/22/18 17:34 Dose: 20 mg Vital Signs - 8 hr 02/23/18 02/23/18 02/23/18 06:00 07:00 07:59 Temperature 98.7 F Pulse Rate 134 138 Respiratory 12 11 Rate Blood Pressure 100/64 96/70 (mmHg) O2 Sat by Pulse 88 96 Oximetry 02/23/18 02/23/18 02/23/18 08:00 08:09 08:19 Temperature Pulse Rate 150 148 Respiratory 19 17 Rate Blood Pressure 118/79 (mmHg) O2 Sat by Pulse 94 Oximetry 02/23/18 02/23/18 02/23/18 09:00 09:36 09:42 Temperature Pulse Rate 137 130 133 Respiratory 14 15 Rate Blood Pressure 95/60 122/93 (mmHg) O2 Sat by Pulse 92 96 Oximetry 02/23/18 02/23/18 02/23/18 10:00 11:00 11:02 Temperature Pulse Rate 113 128 Respiratory 16 14 23 Rate Blood Pressure 101/85 75/71 90/70 (mmHg) O2 Sat by Pulse 97 94 Oximetry 02/23/18 02/23/18 02/23/18 11:45 11:50 11:52 Temperature 99.1 F Pulse Rate 142 143 Respiratory 15 24 Rate Blood Pressure 93/77 108/82 (mmHg) O2 Sat by Pulse 95 100 Oximetry 02/23/18 02/23/18 02/23/18 11:54 12:00 12:57 Temperature Pulse Rate 145 132 150 Respiratory 23 17 Rate Blood Pressure 104/70 99/77 (mmHg) O2 Sat by Pulse 98 93 Oximetry 02/23/18 02/23/18 02/23/18 13:00 13:02 13:15 Temperature Pulse Rate 152 139 Respiratory 28 23 30 Rate Blood Pressure 113/92 135/95 (mmHg) O2 Sat by Pulse 95 94 Oximetry Oxygen Devices in Use Now: None Appearance: Pleasant lady sitting up in a chair in NAD. Eyes: No Scleral Icterus Ears/Nose/Mouth/Throat: Mucous Membranes Moist Neck: Trachea Midline Respiratory: Symmetrical Chest Expansion and Respiratory Effort, - - BS+ bilaterally with bibasilar rales Cardiovascular: - - Normal S1 and S2, irregularly irregular Abdominal: NL Sounds; No Tenderness; No Distention Extremities: - - Bilateral mild to moderate pitting edema Neurological: Alert and Oriented x 3, NL Muscle Strength and Tone Result Diagrams: 02/22/18 04:34 02/23/18 06:15 Assess/Plan/Problems-Billing Assessment: Mrs. 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 - Patient Problems (1) Hyponatremia Comment: - Suspect secondary to SIADH/HCTZ use, but also fluid overload. - Urine osmolality >250 despite initial serum sodium of 118. - Sodium up to 126. (2) Atrial fibrillation with RVR Comment: - Continue digoxin and Xarelto. Metoprolol if BP tolerates it. - Cardiology consult requested. (3) Diastolic CHF, acute on chronic Comment: - Echo done 02/14 showed EF 50-55%. Suspect she's decompensated now due to persiste Afib with uncontrolled rate. - Continue diuresis. (4) DVT prophylaxis Comment: - Xarelto. (5) DNR (do not resuscitate) Status and Disposition: Inpatient. Transfer to Telemetry floor.
[2018-02-23] MEDS: Rivaroxaban TAB(*) 20 MG TAB PO SCH (17:24)
--- NOTE | 2018-02-23 18:49 | ECHO ---
Patient: ION MARQUEZ [facility] Rec#: [id number] : 1935 Date: 02/23/2018 Age: 83y Height: 168 cm / 66.1 in Weight: 83.2 kg / 183.4 lbs Sex: F BSA: 1.93 Room#: 451 Admit Date#: 02/21/2018 Type: Inpatient Referring: Reinaldo Del Rio MD Reading: Reinaldo Del Rio MD [employer] Professional: Tiffanie Hester ROSEMARY CC: Oumar Muñoz Transthoracic Echocardiogram Indication: A-fib BP: 99/77 HR: 122 Rhythm: A-Fib Findings History: A-fib,s/p IVC filter due to prior DVT,uterine tumor. This is a limited follow up echo to evaluate LVEF. Complete echo done 02/14/2018. Technical Comments: The study quality is good. Completed at 1705. Left Ventricle: There is a prominent septal knuckle. The estimated ejection fraction is 60-65%. Left Atrium: The left atrium is severely dilated. Right Ventricle: The right ventricular global systolic function is normal. Right Atrium: The right atrial cavity size is severely dilated. Conclusions This is a limited follow up echo to evaluate LVEF. AFib with Rapid rate response during the exam. The estimated ejection fraction is 60-65%. Improvement in EF c/t 02/14/18 when it was 50-55%.
--- NOTE | 2018-02-23 22:33 | CONS ---
CC: Dr. Muñoz; Dr. Del Rio CARDIOLOGY CONSULTATION: DATE OF CONSULT: 02/23/18 REASON FOR CONSULT: Atrial fibrillation. HISTORY OF PRESENT ILLNESS: This is a very pleasant 83-year-old woman who says she has a long-standing history of paroxysmal atrial fibrillation dating back about four years. She said at that time she was noted to be in AFib after a fall. She thinks she was aware of the palpitations. She has been treated with doses of metoprolol 25 mg a day which has been gradually increased to 50. She said a year and a half ago, she had another fall after bending over and losing her balance and was increased to 75 more recently. She went to see Dr. Muñoz and was noted to have an increased heart rate and was increased to 100. She thinks that it has been palpitating for at least a month now. She did have an echocardiogram performed on 02/14/18 for AFib which revealed a heart rate of 125, blood pressure of 129/81, mild to moderate concentric LVH, LV systolic function lower limits of normal, EF 50 to 55%, severe left atrial enlargement, mild reduction in RV function, mildly thickened aortic leaflets, trace to mild AI, mild MR, mild to moderate TR, PA pressure estimated 49, mild to moderate pulmonary hypertension, trace to mild PI. Compared to July of 2014, the rate is elevated in AFib. The patient was asymptomatic. Previous EF was 60 to 65% and now there is severe biatrial enlargement. Of note, the previous echo also mentioned mild LVH with septum of 13 and posterior wall of 11. The echocardiogram from 02/14/18 measured septum of 13 and posterior wall 12. The patient says that uses a walker to get around because of back discomfort and balance issues. She denies any syncope or near syncope. She lives alone in an apartment. She saw Dr. Muñoz on 02/21/18 and because of her tachycardia and edema, he decided to add diltiazem 30 mg twice a day, however, her labs came back with a low sodium and she was referred to the emergency room. She uses several pillows at night for comfort, she says her edema has increased over the last month. She says she has not been checking her weight. She denies nausea or diarrhea. No fever, chills or sweats. No strokes or mini strokes. No bleeding problems. PAST MEDICAL HISTORY: Paroxysmal atrial fibrillation for the last several years , usually once a month for a few hours but now persisting, DVT and an IVC filter placement at the time of her uterine tumor/fibroid removal and hysterectomy in 1997, gastroesophageal reflux, anxiety. PAST SURGICAL HISTORY: Hysterectomy, appendectomy, uterine fibroid removal approximately in 1997. MEDICATIONS: Prior to admission include: 1. Metoprolol 100 mg a day. 2. Buspirone 5 mg one tablet four times a day as needed. 3. Xarelto 20 mg a day. 4. Hydrochlorothiazide 12.5 a day. 5. Omeprazole 20 mg a day. 6. Loratadine 10 mg a day. 7. As an inpatient, she was tried on diltiazem IV yesterday, but developed hypotension. Her other medications are, 1. Acetaminophen. 2. Digoxin as needed. She got 0.25 x4 doses yesterday and one this morning. 3. Metoprolol XL 100 mg day, held this morning because of low blood pressure. 4. Omeprazole 20 mg a day. 5. Zofran 4 mg IV q.6. 6. Xarelto 20 mg at 1700. ALLERGIES: POLLEN, no drug allergies. SOCIAL HISTORY: She denies alcohol use. She drinks one caffeinated coffee a day. She is , has three adult children which includes one daughter with bipolar disorder and one adopted child. She has no siblings. Her father at 81, mother at 86 and had AFib and heart failure. REVIEW OF SYSTEMS: Review of systems x10 was negative except as above. PHYSICAL EXAM: She is a well-developed, well-nourished overweight female in no apparent distress. Vital Signs: Blood pressure 108/80, heart rates ranged from the 110s to 150s while I was talking to her. JVD approximately 8 cm. Carotids 2+ without bruits. No cervical adenopathy or thyromegaly. Extraocular muscles are intact. Sclera anicteric. Alert and oriented x3. Cardiac Exam: S1, S2, rapid and irregular with a 2/6 holosystolic murmur at the left lower sternal border. Chest revealed rales about a quarter of the way up bilaterally. Abdomen: Bowel sounds present. Nontender. No hepatosplenomegaly. Femoral pulses intact without bruits. Distal pulses intact , there is 3+ edema to lower extremities. Negative Homans sign. Motor strength 5/5 bilaterally. Deep tendon reflexes 2/4. Skin turgor was normal. Weight was 190 yesterday down to 183 today. DIAGNOSTIC STUDIES/LAB DATA: EKG from 02/21/18 revealed AFib with a rapid ventricular response and no acute changes. Previous from 04/11/17, revealed sinus rhythm with counterclockwise rotation. No acute changes. Labs include mild anemia, hemoglobin at 11.1, hematocrit of 32, platelet count 166. Sodium up to 126, was 118 on 02/21/18, potassium of 3.8, BUN 9, creatinine of 0.49. Mag was 2.0 today. TSH was 2.6 on 02/21/18. Dig level was 0.9 this morning. I do not have a chest x-ray report. IMPRESSION: Ms. Burrell has history of paroxysmal atrial fibrillation, now appears to have persistent atrial fibrillation, and decompensated from congestive heart failure, probably due to tachycardia and decreased systolic function, perhaps diastolic dysfunction. She also has hyponatremia possibly related to volume overload and her diuretic use. Managing her is somewhat challenging since she has not responded to beta-víctor and she became hypotensive on the diltiazem. So far, the digoxin has not been effective. We also considered the possibility of a cardioversion, however, given her age, persistent AFib of unknown duration and severely dilated left atrium, I think that it is be unlikely that she will convert to and maintain sinus rhythm. I discussed these options with the patient. PLAN/RECOMMENDATIONS: For the time being, I recommend the followin. I suggested that we titrate up her digoxin. I would re-implement a lower dose of metoprolol starting with IV metoprolol of 2.5 mg and advancing as tolerated. 2. Given her peripheral edema and volume overload, she may have developed intestinal edema and may not be absorbing her oral meds. 3. Ideally, I would like to see her on a more moderate dose metoprolol and digoxin and perhaps a low-dose diltiazem if her blood pressure will tolerate it. 4. She may require further diuresis once her heart rate and blood pressure stabilize. 5. We will try to maintain her potassium over 4. 6. We would consider obtaining an SPEP given her mild LVH of unclear etiology. 7. We will repeat an echo to assess her LV function. 8. We will anticoagulation as you are doing. 9. If we continue to have inadequate heart rate control, we could consider pacemaker and AV node ablation, which will be a more extreme intervention, but possibly helpful in terms of controlling her rate and LV dysfunction if a tachycardia induced cardiomyopathy is suspected. [id number]/[facility] [place] #: [id number] MTDJordan
[2018-02-24 07:09] LABS: EGFR Non-African American 144.4 (>60)
[2018-02-24] MEDS ORDERED: Digoxin IV* 0.5 MG/2 ML AMP (0.25 MG/ML) IV SLOW PU ONE (07:37)
[2018-02-24] MEDS: Omeprazole CAP* 20 MG PO SCH (08:47)
[2018-02-24] MEDS: Metoprolol Succinate XL TAB* 100 MG PO SCH (08:47)
[2018-02-24] MEDS ORDERED: Metoprolol Tartrate IV* 1 MG/ML 5 ML VIAL IV ONE (10:03)
[2018-02-24] MEDS ORDERED: Metoprolol Succinate XL TAB* 25 MG PO ONE (14:36)
--- NOTE | 2018-02-24 14:37 | PN ---
Subjective Date of Service: 02/24/18 Interval History: HOSPITALIST PROGRESS NOTE Patient seen and examined at bedside. Care reviewed and d/w Camilo Delgado RN. She feels well today. Denies chest pain or palpitations despite HR in the 150s with exertion. Family History: Unchanged from Admission Social History: Unchanged from Admission Past Medical History: Unchanged from Admission Objective Active Medications: Acetaminophen (Tylenol Tab*) 650 mg PO Q4H PRN PRN Reason: FEVER/PAIN Last Admin: 02/22/18 06:00 Dose: 650 mg Metoprolol Succinate (Toprol Xl Tab*) 100 mg PO DAILY [facility] Last Admin: 02/24/18 08:47 Dose: 100 mg Omeprazole (Prilosec Cap*) 20 mg PO DAILY [facility] Last Admin: 02/24/18 08:47 Dose: 20 mg Ondansetron HCl (Zofran Inj*) 4 mg IV Q6H PRN PRN Reason: NAUSEA Rivaroxaban (Xarelto(*)) 20 mg PO 1700 [facility] Last Admin: 02/23/18 17:24 Dose: 20 mg Vital Signs - 8 hr 02/24/18 02/24/18 02/24/18 07:49 08:00 09:02 Temperature 98.0 F Pulse Rate 151 Respiratory 16 20 Rate Blood Pressure 122/47 (mmHg) O2 Sat by Pulse 97 98 Oximetry Oxygen Devices in Use Now: None Appearance: Pleasant elderly lady sitting up in a recliner in [facility]. Eyes: No Scleral Icterus Ears/Nose/Mouth/Throat: Mucous Membranes Moist Neck: Trachea Midline Respiratory: Symmetrical Chest Expansion and Respiratory Effort, - - BS+ bilaterally with fine bibasilar crackles Cardiovascular: - - Normal S1 and S2, irregularly irregular, tachy Extremities: - - Trace to mild bilateral LE edema Neurological: Alert and Oriented x 3, NL Muscle Strength and Tone Result Diagrams: 02/22/18 04:34 02/24/18 06:27 Assess/Plan/Problems-Billing Assessment: Mrs. 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 - Patient Problems (1) Hyponatremia Comment: - Suspect secondary to SIADH/HCTZ use, but also fluid overload. - Urine osmolality >250 despite initial serum sodium of 118. - Sodium up to 128. (2) Atrial fibrillation with RVR Comment: - Continue digoxin and Xarelto. Metoprolol if BP tolerates it. - Cardiology consult appreciated - continue to titrate medications. Dr. Del Rio thinks her LA is too large and cardioversion would not last. (3) Diastolic CHF, acute on chronic Comment: - Echo done 02/14 showed EF 50-55%. Suspect she's decompensated now due to persiste Afib with uncontrolled rate. - Limited echo this admission shows preserved EF. (4) DVT prophylaxis Comment: - Xarelto. (5) DNR (do not resuscitate) Status and Disposition: Inpatient.
[2018-02-24] MEDS: Rivaroxaban TAB(*) 20 MG TAB PO SCH (15:09)
[2018-02-25] MEDS ORDERED: Furosemide IV* 10 MG/ML 2 ML VIAL (20 MG) IV SLOW PU ONE (07:35)
[2018-02-25 07:54] LABS: EGFR Non-African American 120.9 (>60)
[2018-02-25] MEDS: Metoprolol Succinate XL TAB* 100 MG PO SCH (08:04)
[2018-02-25] MEDS: Omeprazole CAP* 20 MG PO SCH (08:05)
[2018-02-25] MEDS ORDERED: Metoprolol Succinate XL TAB* 25 MG PO SCH (09:00)
[2018-02-25] MEDS ORDERED: Digoxin TAB* 0.25 MG PO SCH (10:00)
--- NOTE | 2018-02-25 13:51 | PN ---
Subjective Date of Service: 02/25/18 Interval History: HOSPITALIST PROGRESS NOTE Patient seen and examined at bedside. Care reviewed and d/w Khalif Diaz RN. She feels well today. States she walked around the unit and had no dyspnea, CP, or palpitations. Family History: Unchanged from Admission Social History: Unchanged from Admission Past Medical History: Unchanged from Admission Objective Active Medications: Acetaminophen (Tylenol Tab*) 650 mg PO Q4H PRN PRN Reason: FEVER/PAIN Last Admin: 02/22/18 06:00 Dose: 650 mg Digoxin (Lanoxin Tab*) 0.125 mg PO DAILY@[facility]00 [facility] Metoprolol Succinate (Toprol Xl Tab*) 100 mg PO DAILY [facility] Last Admin: 02/25/18 08:04 Dose: 100 mg Metoprolol Succinate (Toprol Xl Tab*) 25 mg PO DAILY [facility] Last Admin: 02/25/18 08:05 Dose: 25 mg Omeprazole (Prilosec Cap*) 20 mg PO DAILY [facility] Last Admin: 02/25/18 08:05 Dose: 20 mg Ondansetron HCl (Zofran Inj*) 4 mg IV Q6H PRN PRN Reason: NAUSEA Rivaroxaban (Xarelto(*)) 20 mg PO 1700 [facility] Last Admin: 02/24/18 15:09 Dose: 20 mg Vital Signs - 8 hr 02/25/18 02/25/18 02/25/18 07:46 08:00 12:04 Temperature 97.4 F 98.5 F Pulse Rate 73 Respiratory 16 16 16 Rate Blood Pressure 130/76 96/80 (mmHg) O2 Sat by Pulse 100 95 Oximetry 02/25/18 12:32 Temperature Pulse Rate 114 Respiratory Rate Blood Pressure 90/60 (mmHg) O2 Sat by Pulse Oximetry Oxygen Devices in Use Now: None Appearance: Pleasant elderly lady sitting up in a chair in [facility]. Eyes: No Scleral Icterus Ears/Nose/Mouth/Throat: Mucous Membranes Moist Neck: Trachea Midline Respiratory: Symmetrical Chest Expansion and Respiratory Effort, - - BS+ bilaterally, with fine in crackles in bases Cardiovascular: - Extremities: - - Mild to moderate LE edema Neurological: Alert and Oriented x 3 Result Diagrams: 02/22/18 04:34 02/25/18 07:24 Assess/Plan/Problems-Billing Assessment: Mrs. 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 - Patient Problems (1) Hyponatremia Comment: - Suspect secondary to SIADH/HCTZ use, but also fluid overload. - Urine osmolality >250 despite initial serum sodium of 118. - Sodium up to 129. (2) Atrial fibrillation with RVR Comment: - Continue digoxin and Xarelto. Increase Metoprolol to 125mg as BP tolerates it. - Cardiology consult appreciated - continue to titrate medications. Dr. Del Rio thinks her LA is too large and cardioversion would not last. - Would consider ablation and pacer if unable to control with meds. (3) Diastolic CHF, acute on chronic Comment: - Echo done 02/14 showed EF 50-55%. Suspect she's decompensated now due to persistent Afib with uncontrolled rate. - Limited echo this admission shows preserved EF. (4) DVT prophylaxis Comment: - Xarelto. (5) DNR (do not resuscitate) Status and Disposition: Inpatient.
[2018-02-25] MEDS: Digoxin TAB* 0.25 MG PO SCH (16:44)
[2018-02-25] MEDS: Rivaroxaban TAB(*) 20 MG TAB PO SCH (16:45)
[2018-02-25] MEDS ORDERED: Metoprolol Succinate XL TAB* 25 MG PO ONE (17:54)
[2018-02-26] MEDS: Metoprolol Succinate XL TAB* 100 MG PO SCH (09:02)
[2018-02-26] MEDS: Omeprazole CAP* 20 MG PO SCH (09:02)
[2018-02-26] MEDS: Metoprolol Succinate XL TAB* 50 MG PO SCH (09:02)
--- NOTE | 2018-02-26 12:48 | PN ---
Subjective Date of Service: 02/26/18 Interval History: HOSPITALIST PROGRESS NOTE Patient seen and examined at bedside. Care reviewed and d/w Hiral Escobar RN. She offers no new complaints today. Happy her weight is down to 176lbs. Still tachycardic with exertion, but denies CP, palpitations, or dyspnea. Family History: Unchanged from Admission Social History: Unchanged from Admission Past Medical History: Unchanged from Admission Objective Active Medications: Acetaminophen (Tylenol Tab*) 650 mg PO Q4H PRN PRN Reason: FEVER/PAIN Last Admin: 02/22/18 06:00 Dose: 650 mg Digoxin (Lanoxin Tab*) 0.125 mg PO DAILY@1700 [facility] Last Admin: 02/25/18 16:44 Dose: 0.125 mg Diltiazem HCl (Cardizem Tab*) 30 mg PO TID [facility] Metoprolol Succinate (Toprol Xl Tab*) 100 mg PO DAILY [facility] Last Admin: 02/26/18 09:02 Dose: 100 mg Metoprolol Succinate (Toprol Xl Tab*) 50 mg PO DAILY [facility] Last Admin: 02/26/18 09:02 Dose: 50 mg Omeprazole (Prilosec Cap*) 20 mg PO DAILY [facility] Last Admin: 02/26/18 09:02 Dose: 20 mg Ondansetron HCl (Zofran Inj*) 4 mg IV Q6H PRN PRN Reason: NAUSEA Rivaroxaban (Xarelto(*)) 20 mg PO 1700 [facility] Last Admin: 02/25/18 16:45 Dose: 20 mg Vital Signs - 8 hr 02/26/18 02/26/18 02/26/18 08:02 08:11 11:12 Temperature 98.3 F 97.6 F Pulse Rate 129 117 Respiratory 16 16 16 Rate Blood Pressure 125/85 98/66 (mmHg) O2 Sat by Pulse 99 98 Oximetry Oxygen Devices in Use Now: None Appearance: Elderly lady lying in bed in NAD. Eyes: No Scleral Icterus Ears/Nose/Mouth/Throat: Mucous Membranes Moist Neck: Trachea Midline Respiratory: Symmetrical Chest Expansion and Respiratory Effort, - - BS+ bilaterally diminished in both bases Cardiovascular: - - Normal S1 and S2, irregularly irregular Extremities: - - Mild bilateral LE edema Neurological: Alert and Oriented x 3 Result Diagrams: 02/22/18 04:34 02/25/18 07:24 Assess/Plan/Problems-Billing Assessment: Mrs. 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 - Patient Problems (1) Hyponatremia Comment: - Suspect secondary to SIADH/HCTZ use, but also fluid overload. - Urine osmolality >250 despite initial serum sodium of 118. - Sodium up to 129. (2) Atrial fibrillation with RVR Comment: - Continue digoxin and Xarelto. - Metoprolol up to 150mg and will add Cardizem - Cardiology consult appreciated - continue to titrate medications. Dr. Del Rio thinks her LA is too large and cardioversion would not last. - Would consider ablation and pacer if unable to control with meds. (3) Diastolic CHF, acute on chronic Comment: - Echo done 02/14 showed EF 50-55%. Suspect she's decompensated now due to persistent Afib with uncontrolled rate. - Limited echo this admission shows preserved EF. - Weight down to 176 lbs. (4) DVT prophylaxis Comment: - Xarelto. (5) Full code status Comment: - Despite prior MOLST in our system indicating she wanted to be DNR, patient states she would like to be resuscitated, but would not want to be "connected to machines" for a long time. Status and Disposition: Inpatient.
[2018-02-26] MEDS: Diltiazem TAB* 30 MG PO SCH ×2 (14:02→20:44)
[2018-02-26] MEDS: Digoxin TAB* 0.25 MG PO SCH (18:38)
[2018-02-26] MEDS: Rivaroxaban TAB(*) 20 MG TAB PO SCH (18:39)
[2018-02-27] MEDS: Diltiazem TAB* 30 MG PO SCH ×2 (08:48→13:48)
[2018-02-27] MEDS: Omeprazole CAP* 20 MG PO SCH (08:48)
[2018-02-27] MEDS: Metoprolol Succinate XL TAB* 50 MG PO SCH (08:48)
[2018-02-27] MEDS: Metoprolol Succinate XL TAB* 100 MG PO SCH (08:48)
[2018-02-27 13:02] VITALS: BP 107/67
[2018-02-27] MEDS: Acetaminophen TAB* 325 MG PO PRN (15:41)
--- NOTE | 2018-02-28 13:59 | DS ---
CC: Dr. Muñoz; Dr. Del Rio * DISCHARGE SUMMARY: DATE OF ADMISSION: 02/21/18 DATE OF DISCHARGE: 02/27/18 PRIMARY CARE PROVIDER: Dr. Muñoz. CONSULTING FOIL WRAPPER: Dr. Del Rio. DISCHARGE DIAGNOSES: 1. 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 2. Atrial fibrillation with rapid ventricular rate. 3. Acute diastolic congestive heart failure exacerbation. SECONDARY DIAGNOSES: 1. Paroxysmal atrial fibrillation. 2. Large uterine fibroid, status post resection. 3. Deep vein thrombosis, secondary to iliac vein compression caused by uterine fibroid, status post IVC filter. 4. Anxiety. 5. Gastroesophageal reflux disease. 6. Humeral fracture. MEDICATION LIST: 1. BuSpar 5 mg p.o. 4 times a day as needed for anxiety. 2. Loratadine 10 mg p.o. daily. 3. Glucosamine 1000 mg p.o. daily. 4. Vitamin E 500 units p.o. daily. 5. Calcium plus vitamin D 1 tablet p.o. daily. 6. Omeprazole 20 mg p.o. daily. 7. Multivitamin 1 tablet p.o. daily. 8. Rivaroxaban 20 mg p.o. daily. Medication change: 1. Metoprolol succinate was increased from 100 mg to 150 mg p.o. daily for AFib control. New medications: 1. Potassium chloride 20 mEq p.o. daily. 2. Magnesium oxide 400 mg p.o. daily. 3. Furosemide 20 mg p.o. daily. 4. Diltiazem CD 120 mg p.o. daily. 5. Digoxin 0.125 p.o. daily at 5 p.m. HOSPITAL COURSE: Ms. Burrell is an 83-year-old lady with a past medical history as stated above that was sent to the emergency room from her PCP's office due to low sodium and rapid pulse. The patient has had issues with her atrial fibrillation for weeks and her primary care provider has been titrating her medications in order to control it. She also had progressive edema. She had been started on hydrochlorothiazide and had just received a prescription for diltiazem, but her sodium level was found to be 118 and she was sent to the emergency room for further evaluation. Of note is that despite the low sodium, the patient had normal mental status and despite her rapid atrial fibrillation with a heart rate in the 140s, she was not feeling she was symptomatic. For more details about her presentation, I refer you to her history and physical. The patient was admitted initially to the intensive care unit for further evaluation and treatment. She had initial sodium of 118 with a serum osmolality of 269 and a urinary osmolality of 254. 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 The patient's hydrochlorothiazide was discontinued. She was diuresed with furosemide and her sodium on the day of discharge is 129. Also of note is the fact that the patient has lost almost 14 pounds since her admission, but she still has lower extremity edema and we will need further diuresis. For her atrial fibrillation, she was started on a Cardizem drip. She also received digoxin and metoprolol. Those medications were titrated and the patient has reasonable rate control with a regimen of metoprolol succinate 150 mg p.o. daily, Cardizem 120 mg p.o. daily, and digoxin 0.125 mg p.o. daily. The patient was seen in consultation by Cardiology (Dr. Del Rio) and his impression was that the patient has a history of paroxysmal atrial fibrillation that now appears to be persistent and decompensated diastolic congestive heart failure, probably due to tachycardia and decreased systolic function, perhaps diastolic dysfunction. She also has hyponatremia, possibly related to volume overload and her diuretic use. His recommendation was to titrating up medications and continue diuresis. He did not think she was a good candidate for cardioversion given her age, persistent AFib of unknown duration, and severely dilated left atrium, so he felt it was unlikely that she would convert to and maintain sinus rhythm. He also recommended evaluation for consideration of a pacemaker and AV node ablation if she does not attain adequate rate control with oral medications. A limited echocardiogram was performed and it showed a preserved ejection fraction of 60 to 65. The patient's electrolytes were repleted and we maintained her potassium above 4 and her magnesium around 2. Of note, the patient had no complaints of chest pain, palpitations, or dyspnea. She was felt to be stable for discharge today, to follow up with her primary care provider and Dr. Del Rio as outpatient. PHYSICAL EXAMINATION: Vital Signs: Temperature 97.7, heart rate was 105, respiratory rate of 16, oxygen saturation 97% on room air, blood pressure is 107 /67. General: The patient is a pleasant elderly lady, sitting up in a chair, in no acute distress. CVS: Normal S1 and S2. Irregularly irregular. Chest: Breath sounds present bilaterally with no added sounds. Extremities: There is [id number] bilateral lower extremity pitting edema. Neuro: She is alert and oriented x3, able to move all 4 extremities. DIET: Heart-healthy diet. ACTIVITY: As tolerated. DISPOSITION: To home. STATUS IN THE HOSPITAL: Inpatient. TIME SPENT: Approximately 50 minutes were spent to complete this discharge. [id number]/CPS #: [id number] MTDD
== END 2018-02-27 15:41 | disposition home or self-care (01) | DRG 643 ==
LOC: ED 17:11 → ICU 22:14 → MEDTELE 02-23 15:01
PROVIDERS: ADMIT Internal Medicine; ATTEND Internal Medicine
DX: E22.2 Syndrome of inappropriate secretion of antidiuretic hormone (principal); I50.33 Acute on chronic diastolic (congestive) heart failure; I48.1 Persistent atrial fibrillation; I48.0 Paroxysmal atrial fibrillation; F41.9 Anxiety disorder, unspecified; K21.9 Gastro-esophageal reflux disease without esophagitis; T50.2X5A Adverse effect of carbonic-anhydrase inhibitors, benzothiadiazides and other diuretics, initial encounter; I11.0 Hypertensive heart disease with heart failure; M19.90 Unspecified osteoarthritis, unspecified site; M81.0 Age-related osteoporosis without current pathological fracture; Z66 Do not resuscitate; I08.3 Combined rheumatic disorders of mitral, aortic and tricuspid valves; E66.3 Overweight; D64.9 Anemia, unspecified; I27.20 Pulmonary hypertension, unspecified; Z86.718 Personal history of other venous thrombosis and embolism; Z85.42 Personal history of malignant neoplasm of other parts of uterus; Z82.49 Family history of ischemic heart disease and other diseases of the circulatory system; Z80.6 Family history of leukemia; Z90.89 Acquired absence of other organs; Z81.8 Family history of other mental and behavioral disorders; Z90.710 Acquired absence of both cervix and uterus; Y92.9 Unspecified place or not applicable; Z79.01 Long term (current) use of anticoagulants; Z68.28 Body mass index [BMI] 28.0-28.9, adult
CPT/HCPCS: 36415; 80048; 80053; 80061; 80162; 82533; 82550; 83735; 83880; 83930; 83935; 84300; 84443; 84484; 85025; 85610; 85730; 87641; 93005; 93308; 99285; A9270-GY; J1160; J1650; J1940; J3475; J3490

== ENCOUNTER → 2019-04-24 02:46 | Emergency (ER) | payer MEDICARE, OTHER ==
--- NOTE | 2019-04-24 03:05 | ED ---
Upper Extremity Pain - HPI Summary HPI Summary: This patient is an 84 year old F presenting to [facility] by EMS with a chief complaint of gradually worsening pain in her right hand since 1730 on 04/23/19. Pt report she can not open her right hand. Pt woke up from nap and thats when the pain began. Pt was not able to drive, or eat with right hand. Pt had a Ganglion Cyst three years ago and it is back again, however this is the first time there is pain. Patient reports numbness in her hand. - History of Current Complaint Chief Complaint: EDExtremityUpper Stated Complaint: R HAND PAIN PER EMS Time Seen by Provider: 04/24/19 02:50 Hx Obtained From: Patient Onset/Duration: Started Hours Ago Timing: Constant Severity Initially: Mild Severity Currently: Moderate Pain Location: Arm, Hand Aggravating Factor(s): Flexion Alleviating Factor(s): Nothing Associated Signs & Symptoms: Positive: Numbness/Tingling - Allergies/Home Medications Allergies/Adverse Reactions: Allergies Allergy/AdvReac Type Severity Reaction Status Date / Time No Known Allergies Allergy Verified 02/21/18 17:29 Home Medications: Home Medications Loratadine [Allerclear] 10 mg PO DAILY 04/24/19 [History Confirmed 04/24/19] Rivaroxaban TAB(*) [Xarelto 20 mg] 20 mg PO DAILY 04/24/19 [History Confirmed ] PMH/Surg Hx/FS Hx/Imm Hx Endocrine/Hematology History: Reports: Hx Anemia Denies: Hx Anticoagulant Therapy, Hx Diabetes, Hx Thyroid Disease Cardiovascular History: Reports: Hx Hypertension, Other Cardiovascular Problems/ Disorders - A FIB Respiratory History: Denies: Hx Asthma GI History: Reports: Hx Gastroesophageal Reflux Disease Musculoskeletal History: Reports: Hx Arthritis, Hx Osteoporosis Sensory History: Reports: Hx Contacts or Glasses Denies: Hx Hearing Aid Opthamlomology History: Reports: Hx Contacts or Glasses - Surgical History Surgery Procedure, Year, and Place: benign fibroid (2000), filter in vena cava Infectious Disease History: No Infectious Disease History: Denies: Traveled Outside the [place] in Last 30 Days - Family History Known Family History: Positive: Cardiac Disease - mother, Other - Leukemia ( father) - Social History Occupation: Retired Alcohol Use: None Hx Substance Use: No Substance Use Type: Reports: None Hx Tobacco Use: No Smoking Status (MU): Never Smoked Tobacco Review of Systems Positive: Other - pain in right arm Positive: Numbness All Other Systems Reviewed And Are Negative: Yes Physical Exam - Summary Physical Exam Summary: VITAL SIGNS: Reviewed. GENERAL: Patient is a well-developed and nourished female who is lying comfortable in the stretcher. Patient is not in any acute respiratory distress. HEAD AND FACE: No signs of trauma. No ecchymosis, hematomas or skull depressions. No sinus tenderness. EYES: PERRLA, EOMI x 2, No injected conjunctiva, no nystagmus. EARS: Hearing grossly intact. Ear canals and tympanic membranes are within normal limits. MOUTH: Oropharynx within normal limits. NECK: Supple, trachea is midline, no adenopathy, no JVD, no carotid bruit, no c- spine tenderness, neck with full ROM CHEST: Symmetric, no tenderness at palpation LUNGS: Clear to auscultation bilaterally. No wheezing or crackles. CVS: Regular rate and rhythm, S1 and S2 present, no murmurs or gallops appreciated. ABDOMEN: Soft, non-tender. No signs of distention. No rebound no guarding, and no masses palpated. Bowel sounds are normal. EXTREMITIES: FROM in all major joints, no edema, no cyanosis or clubbing. Weakness of the second, third, fourth, and fifth finger, pt is unable to extend them. Pt has localized swelling over dorsal of the hand laterally, good cap refill and good pulse. Muscle atrophy at the dorsal of the hand NEURO: Alert and oriented x 3. No acute neurological deficits. Speech is normal and follows commands. SKIN: Dry and warm Triage Information Reviewed: Yes Vital Signs On Initial Exam: Initial Vitals Temp Pulse Resp BP Pulse Ox 97.3 F 58 16 158/64 96 04/24/19 02:50 04/24/19 02:50 04/24/19 02:50 04/24/19 02:50 04/24/19 02:50 Vital Signs Reviewed: Yes Diagnostics - Vital Signs Vital Signs Temp Pulse Resp BP Pulse Ox 04/24/19 02:50 97.3 F 58 16 158/64 96 - Laboratory Result Diagrams: 04/24/19 04:00 04/24/19 04:00 Lab Statement: Any lab studies that have been ordered have been reviewed, and results considered in the medical decision making process. Re-Evaluation - Re-Evaluation First Eval Re-Evaluation Time: 03:28 Comment: Discussed plan of care with pt. Course/Dx - Course Course Of Treatment: This patient is an 84 year old F presenting to [facility] by EMS with a chief complaint of gradually worsening pain in her right hand since 1730 on 04/23/19. Pt report she can not open her right hand. Pt woke up from nap and thats when the pain began. Pt was not able to drive, or eat with right hand. Pt had a Ganglion Cyst three years ago and it is back again, however this is the first time there is pain. Patient reports numbness in her hand. Physical Exam Findings are weakness of the second, third, fourth, and fifth finger, pt is unable to extend them. Pt also has localized swelling over dorsal of the hand laterally, good cap refill and good pulse. Muscle atrophy at the dorsal of the hand. Applied split to the hand and wrist. We could not apply splint to fingers, as pt uses walker and lives alone. Pt does not want to be discharged, as she is worried about living alone. Pt would like to be sent to rehab. Pt is a sign out to Dr Cali from Dr. Larose at shift change at 0700 on 04/24/19, pending social services manager consult - Diagnoses Provider Diagnoses: Posterior interosseous mononeuropathy - Physician Notifications Discussed Care of Patient With: Yuki Bartholomew Time Discussed With Above Provider: 05:56 Instructed by Provider To: Other - Discussed patient's case with Dr. Bartholomew, who will get a social services manager consult. Discharge - Sign-Out/Discharge Documenting (check all that apply): Sign-Out Patient Signing out patient TO: Ivan Cali Receiving patient FROM: Bk Larose - Pt is a sign out to Dr Farnsworth from Dr. Larose at shift change at 0700 on 04/24/19, pending social services manager consult Patient Received Moderate/Deep Sedation with Procedure: No - Discharge Plan Patient Education Materials: Splint Care (ED) Referrals: Oumar Muñoz MD [Primary Care Provider] - 3 Days Additional Instructions: Follow up with neurologist and hand doctor within 3 days. Follow up with primary care provider within 3 days. Apply splint to hand and wrist. PLEASE RETURN TO THE ED IMMEDIATELY FOR WORSENING OR CONCERNING SYMPTOMS. - Attestation Statements Document Initiated by Scribmary: Yes Documenting Scribe: Naty Harry Provider For Whom Jeramieibmary is Documenting (Include Credential): Dr. Bk Larose MD Scribe Attestation: Naty Owen scribed for Dr. Bk Larose MD on 04/24/19 at 0646. Scribe Documentation Reviewed: Yes Provider Attestation: The documentation as recorded by the wallace, Naty Harry accurately reflects the service I personally performed and the decisions made by me, Dr. Bk Larose MD Status of Scribe Document: Viewed
[2019-04-24 04:09] LABS: ABS Lymphocytes 0.8 10^3/ul (1.0-4.8); ABS Monocytes 0.8 10^3/ul (0-0.8); ABS Neutrophils 3.4 10^3/ul (1.5-7.7); Eosinophil % 0.1 %; Hematocrit 38 % (35-47); Hemoglobin 13.1 g/dL (12.0-16.0); Lymphocyte % 16.2 %; Mean Corpuscular HGB Conc 35 g/dL (31-36); Mean Corpuscular Hemoglobin 32 pg (27-31); Mean Corpuscular Volume 93 fL (80-97); Mean Platelet Volume 7.8 fL (7.4-10.4); Platelet Count 161 10^3/uL (150-450); Red Blood Count 4.06 10^6 /uL (3.70-4.87); Red Cell Distribution Width 14 % (10-15); White Blood Count 4.9 10^3/uL (3.5-10.8)
[2019-04-24 04:16] LABS: Activated Partial Thrombo Time 43.4 seconds (26.0-38.0); INR 1.54 (0.82-1.09)
[2019-04-24 05:00] LABS: Albumin 4.1 g/dL (3.2-5.2); Anion Gap 8 mmol/L (2-11); CO2 Carbon Dioxide 26 mmol/L (22-32); Calcium 9.7 mg/dL (8.6-10.3); Chloride 95 mmol/L (101-111); Magnesium 2.1 mg/dL (1.9-2.7); Potassium 3.9 mmol/L (3.5-5.0); Sodium 129 mmol/L (135-145)
[2019-04-24 05:06] LABS: ALT 17 U/L (7-52); AST 25 U/L (13-39); Albumin/Globulin Ratio 1.4 (1-3); Alkaline Phosphatase 55 U/L (34-104); BUN/Creatinine Ratio 20.6 (8-20); Blood Urea Nitrogen 13 mg/dL (6-24); C Reactive Protein < 1.00 mg/L (<8.01); EGFR African American 109.2 (>60); EGFR Non-African American 90.2 (>60); Glucose 107 mg/dL (70-100); Total Protein 7.1 g/dL (6.4-8.9)
[2019-04-24 05:16] LABS: Erythrocyte Sed Rate 12 mm/Hr (0-29); TSH (Thyroid Stimulating Horm) 2.61 mcIU/mL (0.34-5.60)
--- NOTE | 2019-04-24 06:54 | ED ---
Progress - Progress Note Progress Note: Pt was signed out from Dr. Larose to Dr. Cali at the 0704/24 shift change. 0830 consult, flavor room worker has evaluated the pt and will continue to talk to her. 919, social media editor Bisi reports that the patient agrees to be discharged home. Re-Evaluation - Re-Evaluation First Eval Re-Evaluation Time: 09:20 Comment: Patient cleared for discharge; plan discussed. Course/Dx - Course Course Of Treatment: The patient is a sign-out from Dr. Thuan MD, to Dr. Viraj MD, at change of shift at 0700 on 04/24/2019, pending social media editor consult and evaluation and disposition. Denice reports that the patient is able to receive home care instead of admission for dx of posterior interosseous mononeuropathy. She will continue to speak with the patient. At 0920, Norma reports that patient is clear for discharge. She is given neurology referral and splint care instructions. Patient agrees with discharge and understands need for return to the ED as necessary. - Diagnoses Provider Diagnoses: Posterior interosseous mononeuropathy - Provider Notifications Discussed Care Of Patient With: Denice Carlin Browning - social media editor Time Discussed With Above Provider: 08:00 Instructed by Provider To: Other - Denice reports that the patient is able to receive home care instead of admission. She will continue to speak with the patient. At 0920, Norma reports that patient is clear for discharge.Discussed patient's case with Dr. Bartholomew, who will get a social media editor consult. Discharge - Sign-Out/Discharge Documenting (check all that apply): Patient Departure - discharge, Receiving Sign-Out Receiving patient FROM: Bk Larose - Patient is a sign-out from Dr. Larose at change of shift 0704/24/2019 pending social media editor consult and evaluation and disposition. Patient Received Moderate/Deep Sedation with Procedure: No - Discharge Plan Condition: Good Disposition: HOME Meds/Orders/Equipment: Home Care: Skilled Needs Location: None Selected Patient Education Materials: Splint Care (ED) Referrals: [facility] [Outside] - 3 Days (Nurse from [facility] will call you after discharge to set up 1st visit.) Oumar Muñoz MD [Primary Care Provider] - 3 Days Additional Instructions: Follow up with neurologist and hand doctor within 3 days. Follow up with primary care provider within 3 days. Apply splint to hand and wrist. PLEASE RETURN TO THE ED IMMEDIATELY FOR WORSENING OR CONCERNING SYMPTOMS. - Billing Disposition and Condition Condition: GOOD Disposition: Home - Attestation Statements Document Initiated by Chandni: Yes Documenting Scribe: Diego Hughes Provider For Whom Chandni is Documenting (Include Credential): Ivan Cali MD Scribe Attestation: IDiego, scribed for Ivan Cali MD on 04/25/19 at 0527. Scribe Documentation Reviewed: Yes Provider Attestation: The documentation as recorded by the Diego gonsalez accurately reflects the service I personally performed and the decisions made by me, Ivan Cali MD Status of Scribe Document: Viewed
[2019-04-24 09:54] VITALS: BP 151/73
== END | disposition home or self-care (01) ==
LOC: ED 02:46
DX: G58.8 Other specified mononeuropathies (principal); Z79.01 Long term (current) use of anticoagulants; Z79.899 Other long term (current) drug therapy; D64.9 Anemia, unspecified; I10 Essential (primary) hypertension; K21.9 Gastro-esophageal reflux disease without esophagitis
CPT/HCPCS: 36415; 80053; 83735; 84443; 85025; 85610; 85652; 85730; 86140; 99283